=== PATIENT | female | born 1970 | race Hispanic/Latino ===

== ENCOUNTER 2018-07-23 16:07 | Inpatient (IN) | payer BC ==
[2018-07-23 17:48] VITALS: BMI 49.5
[2018-07-23] MEDS ORDERED: guaiFENesin 100 mg/5 ml Syrup UD PO PRN (18:46)
[2018-07-23] MEDS ORDERED: Levalbuterol 0.63 MG/3 ML Inhal Soln UD INH PRN (18:50)
[2018-07-23] MEDS ORDERED: POLYETHYLENE GLYCOL 3350 17 GM/Dose PACKET PO PRN (19:11)
[2018-07-23] MEDS: Oxycodone/Acetaminophen 5/325 mg Tab PO PRN (20:27)
[2018-07-23] MEDS: Amoxicillin-Clav 875-125 mg Tab PO SCH (20:29)
[2018-07-24] MEDS: Oxycodone/Acetaminophen 5/325 mg Tab PO PRN ×3 (05:55→21:53)
[2018-07-24] MEDS: Levothyroxine 75 MCG TAB PO SCH (06:03)
[2018-07-24 07:03] LABS: HEMOGLOBIN 11.2 g/dL (12.0-16.0); MEAN CELL VOLUME 86.7 fl (81.0-99.0); MEAN CORPUSCULAR HGB CONC 32.3 g/dL (33.0-37.0); RBC 4.01 Mil/uL (3.80-5.20); RED CELL DISTRIBUTION WIDTH 15.8 % (11.5-14.5); WHITE BLOOD COUNT 8.6 K/uL (4.8-10.8)
[2018-07-24 07:08] LABS: ALB/GLOB RATIO 1.1 (1.0-2.1); ALBUMIN 3.6 g/dL (3.5-5.0); ALT/SGPT 45 U/L (9-52); AST/SGOT 47 U/L (14-36); BLOOD UREA NITROGEN 7 mg/dl (7-17); GFR NON-AFRICAN AMERICAN > 60
[2018-07-24 07:35] LABS: T3 0.787 nmol/L (1.49-2.60)
[2018-07-24] MEDS: Amoxicillin-Clav 875-125 mg Tab PO SCH ×2 (09:49→21:49)
[2018-07-24] MEDS: Pantoprazole 40 mg EC Tab PO SCH (09:49)
[2018-07-24] MEDS: Potassium Chloride 10 mEq ER Tab PO SCH (09:55)
--- NOTE | 2018-07-24 17:00 | RAD ---
Date of service: 07/24/2018 HISTORY: F/U pneumonia COMPARISON: No prior. TECHNIQUE: 1 view obtained. FINDINGS: LUNGS: Pulmonary venous congestive changes with bilateral lower lobe alveolar-type infiltrates and bilateral effusions right greater than left PLEURA: Small bilateral effusions right greater than left, no pneumothorax apparent. CARDIOVASCULAR: Sternotomy wires again noted. Cardiomegaly. No significant aortic atherosclerotic calcification. OSSEOUS STRUCTURES: No significant abnormalities. VISUALIZED UPPER ABDOMEN: Normal. OTHER FINDINGS: None. IMPRESSION: Mild pulmonary venous congestion with bilateral lower lobe alveolar-type infiltrates and bilateral effusions right greater than left Cardiomegaly.
--- NOTE | 2018-07-24 17:28 | CARD ---
APPROVED REPORT Date of service: 07/24/2018 EKG Measurement Heart [id number] <Conclusion> Atrial fibrillation Left posterior fascicular block Abnormal ECG
[2018-07-25] MEDS: Levothyroxine 75 MCG TAB PO SCH (06:30)
[2018-07-25] MEDS: Amoxicillin-Clav 875-125 mg Tab PO SCH ×2 (09:05→22:19)
[2018-07-25] MEDS: Potassium Chloride 10 mEq ER Tab PO SCH (09:06)
[2018-07-25] MEDS: Pantoprazole 40 mg EC Tab PO SCH (09:07)
[2018-07-25] MEDS: Oxycodone/Acetaminophen 5/325 mg Tab PO PRN ×3 (09:10→22:11)
[2018-07-26] MEDS: Levothyroxine 75 MCG TAB PO SCH (06:16)
--- NOTE | 2018-07-26 08:15 | PN ---
DATE: 07/25/2018 SUBJECTIVE: The patient seen and examined. Interim events noted. Cardiology consult is pending. The patient feels okay. She was able to ambulate about 2 laps around the unit. No chest pain. No shortness of breath. PHYSICAL EXAMINATION: GENERAL: The patient is in no acute distress. VITAL SIGNS: Stable. HEART: S1, S2 normal, regular. LUNGS: Good bilateral air exchange. ABDOMEN: Soft, nontender. EXTREMITIES: The patient has edema. No calf swelling. No tenderness. No acute ischemia. CENTRAL NERVOUS SYSTEM: Essentially unchanged. DIAGNOSTIC DATA: Available diagnostic data reviewed. ASSESSMENT AND PLAN: Overall, the patient remains clinically stable. Chest x-ray shows infiltrate and congestion. Plan as ordered. Roberto Mirza MD
--- NOTE | 2018-07-26 08:40 | HP ---
CHIEF COMPLAINT: The patient was transferred to TCU from [facility] after mitral valve replacement and ablation for atrial fibrillation. HISTORY OF PRESENT ILLNESS: This is a 47-year-old female rheumatic mitral valve disease and atrial fibrillation, morbid obesity, who had mitral valve replacement and ablation for atrial fibrillation done at [facility] last week. Postop course was complicated with pneumonia for which the patient was treated with antibiotic and after stabilization in the hospital, the patient was sent to transitional care unit for completion of treatment. REVIEW OF SYSTEMS: Positive for palpitation. Review of system otherwise is negative for headache, dizziness, syncope, loss of consciousness, chest pain, nausea, vomiting, diarrhea, constipation, any new joint or extremity pain. Review of system of all other organ system is unremarkable. PAST MEDICAL HISTORY: Significant for rheumatic heart disease, mitral valve disease, and atrial fibrillation. PAST SURGICAL HISTORY: Remarkable for recent mitral valve replacement and ablation, also right knee arthroscopy and vaginal cyst surgery. PERSONAL HISTORY: The patient had a remote history of smoking and alcohol, but none used in last about 18 years . No substance abuse. 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 FAMILY HISTORY: Significant for esophageal cancer in father, vulvar cancer in mother and mother with multiple other comorbidities. MEDICATIONS: The patient is on multiple medications, which include Augmentin, Colace, losartan, aspirin, Eliquis, Lasix, potassium, Lipitor, metoprolol, MiraLax, Percocet, Protonix, and Synthroid. ALLERGIES: THE PATIENT IS NOT ALLERGIC TO ANY MEDICATIONS, BUT NAPROSYN GIVES THE PATIENT VERY BAD HEADACHE. PHYSICAL EXAMINATION: GENERAL: A well-built, well-nourished, morbidly obese 47-year-old female in no acute distress. VITAL SIGNS: Temperature 97.9, pulse 89, blood pressure 129/82, saturation 94%. HEENT: Pupils are reacting to light. No JVD. No thyromegaly. No lymphadenopathy. No nystagmus. Normocephalic, atraumatic skull. HEART: S1 and S2, irregularly irregular. No significant murmur, gallop, or rub is heard. ABDOMEN: Soft, nontender. No organomegaly. No fluids. Bowel sounds are plus and normal. EXTREMITIES: The patient with edema, but no calf swelling, no tenderness, no acute ischemia. CENTRAL NERVOUS SYSTEM: Essentially unchanged. There is no sign of any acute gross focal motor or sensory neurological deficits. SKIN: Surgical scars without any complication. DIAGNOSTIC DATA: Available diagnostic data reviewed. WBC 8.6, hemoglobin 11.2, hematocrit 34.8, platelets 354. Sodium 132, potassium 4.4, chloride 89, bicarb 37, BUN , creatinine 0.4. AST 47, alkaline phosphatase is 160. TSH level is pending, although T4 level available and is 9.77. ADMITTING IMPRESSION: Atrial fibrillation status post ablation, but still continues to be in atrial fibrillation, status post mitral valve replacement, hypothyroidism, morbid obesity, rheumatic heart disease. PLAN: As ordered. Case and plan discussed with the patient. Roberto Mirza MD
[2018-07-26] MEDS: Pantoprazole 40 mg EC Tab PO SCH (08:47)
[2018-07-26] MEDS: Oxycodone/Acetaminophen 5/325 mg Tab PO PRN ×3 (08:47→22:14)
[2018-07-26] MEDS: Amoxicillin-Clav 875-125 mg Tab PO SCH ×2 (08:48→20:45)
[2018-07-26] MEDS: Potassium Chloride 10 mEq ER Tab PO SCH (08:48)
--- NOTE | 2018-07-26 09:47 | CP.PCM.CON ---
History of Present Illness - History of Present Illness History of Present Illness: Consultation s/p MVR at [facility] HPI: Florence Proctor is a 47-year-old female with past medical history significant for hypertension hypothyroidism stable lung nodule on serial CAT scans former smoker 25 to 30 pack year history of smoking quit in 2000 chronic back pain secondary to herniated disc L3-L5 chronic knee pain arthritis known severe mitral regurgitation status post percutaneous mitral valvuloplasty that was done in [address] Maria A Arce at [facility] atrial fibrillation diagnosed in December 2017 on Eliquis who was recently evaluated by Dr. Andres from [place] and was transferred over to [facility] where she underwent a mitral valve replacement by Dr. Bahena postoperatively course was complicated by hospital-acquired pneumonia she was subsequently transferred over to TCU in [place] for rehabilitation as she lives in [place] at the time of my evaluation she her pulmonary status has significantly improved she was having some lower extremity edema with mild pulmonary rales chest x-ray was reordered which showed no evidence of pulmonary vascular congestion with mild cardiomegaly she was somewhat concerned about the sternal wound and postoperative care as far as her bra size is concerned she was getting PT and OT with mild improvement in his functional status. She has been resumed on aspirin Eliquis Lipitor,lasix,losartan,metoprolol Review of Systems - Review of Systems Systems not reviewed;Unavailable: Acuity of Condition - Constitutional Constitutional: As Per HPI - EENT Eyes: As Per HPI Ears: As Per HPI Nose/Mouth/Throat: As Per HPI - Breasts Breasts: As Per HPI - Cardiovascular Cardiovascular: As Per HPI - Respiratory Respiratory: As Per HPI - Gastrointestinal Gastrointestinal: As Per HPI - Genitourinary Genitourinary: As Per HPI - Reproductive: Female Reproductive:Female: As Per HPI - Menstruation Menstruation: As Per HPI - Musculoskeletal Musculoskeletal: As Per HPI - Integumentary Integumentary: As Per HPI - Neurological Neurological: As Per HPI - Psychiatric Psychiatric: As Per HPI - Endocrine Endocrine: As Per HPI - Hematologic/Lymphatic Hematologic: As Per HPI Past Patient History - Past Social History Smoking Status: Former Smoker - CARDIAC Hx Hypertension: Yes Hx Mitral Valve Prolapse: Yes - PULMONARY Hx Pneumonia: Yes - HEMATOLOGICAL/ONCOLOGICAL Hx AIDS: No Hx Human Immunodeficiency Virus (HIV): No - MUSCULOSKELETAL/RHEUMATOLOGICAL Hx Arthritis: Yes Hx Back Pain: Yes Hx Falls: No Hx Herniated Disk: Yes - PSYCHIATRIC Hx Substance Use: No Meds Allergies/Adverse Reactions: Allergies Allergy/AdvReac Type Severity Reaction Status Date / Time naproxen Allergy RASH Verified 07/23/18 17:48 - Medications Medications: Current Medications Acetaminophen (Tylenol 325mg Tab) 650 mg PO Q6 PRN PRN Reason: Pain, Mild (1-3) Amoxicillin/Clavulanate Potassium (Augmentin 875 Mg-125 Mg Tab) 1 tab PO Q12 [facility]; Protocol Last Admin: 07/26/18 08:48 Dose: 1 tab Apixaban (Eliquis) 5 mg PO Q12 [facility]; Protocol Last Admin: 07/26/18 08:48 Dose: 5 mg Aspirin (Ecotrin) 81 mg PO DAILY [facility] Last Admin: 07/26/18 08:47 Dose: 81 mg Atorvastatin Calcium (Lipitor) 10 mg PO HS [facility] Last Admin: 07/25/18 22:20 Dose: 10 mg Docusate Sodium (Colace) 100 mg PO BID [facility] Last Admin: 07/26/18 08:47 Dose: 100 mg Furosemide (Lasix) 40 mg PO BID@0600,1400 [facility] Last Admin: 07/26/18 06:12 Dose: 40 mg Guaifenesin (Robitussin) 100 mg PO Q6 PRN PRN Reason: Cough Levalbuterol HCl (Xopenex) 0.63 mg INH RQ6 PRN PRN Reason: Shortness of Breath Levothyroxine Sodium (Synthroid) 225 mcg PO DAILY@0630 [facility] Last Admin: 07/26/18 06:16 Dose: 225 mcg Losartan Potassium (Cozaar) 25 mg PO DAILY [facility] Last Admin: 07/26/18 08:50 Dose: 25 mg Metoprolol Tartrate (Lopressor) 75 mg PO BID [facility] Last Admin: 07/26/18 08:48 Dose: 75 mg Oxycodone/Acetaminophen (Percocet 5/325 Mg Tab) 1 tab PO Q6 PRN PRN Reason: Pain, moderate (4-7) Stop: 07/26/18 18:53 Last Admin: 07/26/18 08:47 Dose: 1 tab Pantoprazole Sodium (Protonix Ec Tab) 40 mg PO DAILY [facility] Last Admin: 07/26/18 08:47 Dose: 40 mg Polyethylene Glycol (Miralax) 17 gm PO DAILY PRN PRN Reason: Constipation Potassium Chloride (Klor-Con 10) 10 meq PO DAILY [facility] Last Admin: 07/26/18 08:48 Dose: 10 meq Physical Exam - Constitutional Appears: Well - Head Exam Head Exam: ATRAUMATIC, NORMAL INSPECTION, NORMOCEPHALIC - Eye Exam Eye Exam: EOMI, Normal appearance, PERRL Pupil Exam: NORMAL ACCOMODATION, PERRL - ENT Exam ENT Exam: Mucous Membranes Moist, Normal Exam - Neck Exam Neck exam: Positive for: Normal Inspection - Respiratory Exam Respiratory Exam: Clear to Auscultation Bilateral, NORMAL BREATHING PATTERN - Cardiovascular Exam Cardiovascular Exam: REGULAR RHYTHM, +S1, +S2, Systolic Murmur - GI/Abdominal Exam GI & Abdominal Exam: Normal Bowel Sounds, Soft. absent: Tenderness - Extremities Exam Extremities exam: Positive for: normal inspection - Back Exam Back exam: NORMAL INSPECTION - Neurological Exam Neurological exam: Alert, CN II-XII Intact, Normal Gait, Oriented x3, Reflexes Normal - Psychiatric Exam Psychiatric exam: Normal Affect, Normal Mood - Skin Skin Exam: Dry, Intact, Normal Color, Warm Results - Vital Signs Recent Vital Signs: Last Vital Signs Temp 97.7 F 07/26/18 06:33 Pulse 68 07/26/18 08:48 Resp 20 07/26/18 06:33 BP 125/60 07/26/18 08:50 Pulse Ox 98 07/26/18 06:33 - Labs Result Diagrams: 07/24/18 05:20 07/24/18 05:20 Assessment & Plan (1) S/P MVR (mitral valve repair) Assessment and Plan: stable on exam cont current meds repeat echo cont lasix repeat cxr shows no congestion BNP 1850 Status: Acute (2) Atrial fibrillation with normal ventricular rate Assessment and Plan: cont eliquis and bb Status: Acute (3) Hypertension Assessment and Plan: cont losartan Status: Acute (4) Hypothyroidism Status: Acute (5) Morbid obesity Status: Acute
--- NOTE | 2018-07-26 10:16 | PN ---
DATE: 07/26/2018 SUBJECTIVE: The patient is seen and examined. Interim events noted. Cardiology consult is pending. The patient feels better. No chest pain. No shortness of breath. She was able to walk 2 laps around the unit. PHYSICAL EXAMINATION: GENERAL: The patient is in no acute distress. VITAL SIGNS: Stable. HEART: S1, S2 normal, regular. LUNGS: Good bilateral air exchange. ABDOMEN: Soft, nontender. EXTREMITIES: edema. No calf swelling. No tenderness. No acute ischemia. CENTRAL NERVOUS SYSTEM: Essentially unchanged. DIAGNOSTIC DATA: Available diagnostic data reviewed. ASSESSMENT AND PLAN: Overall, the patient's medical condition is stable. Plan as ordered. Roberto Mirza MD
--- NOTE | 2018-07-26 14:21 | RAD ---
Date of service: 07/26/2018 HISTORY: COMPARISON: Frontal chest radiograph 07/24/2018. TECHNIQUE: 1 view obtained. FINDINGS: LUNGS: No active pulmonary disease. PLEURA: No significant pleural effusion identified, no pneumothorax apparent. CARDIOVASCULAR: No aortic atherosclerotic calcification present. Cardiomegaly appears stable. No definite pulmonary vascular congestion appreciable in the interval. Sternotomy wires and prosthetic valvular hardware reiterated. OSSEOUS STRUCTURES: No significant abnormalities. VISUALIZED UPPER ABDOMEN: Normal. OTHER FINDINGS: None. IMPRESSION: Stable cardiomegaly. No definite pulmonary vascular congestion, pleural effusion or infiltrate bilaterally.
[2018-07-27] MEDS: Levothyroxine 75 MCG TAB PO SCH (05:55)
[2018-07-27] MEDS: Oxycodone/Acetaminophen 5/325 mg Tab PO PRN ×2 (08:48→21:32)
[2018-07-27] MEDS: Amoxicillin-Clav 875-125 mg Tab PO SCH ×2 (08:50→21:28)
[2018-07-27] MEDS: Potassium Chloride 10 mEq ER Tab PO SCH (08:51)
[2018-07-27] MEDS: Pantoprazole 40 mg EC Tab PO SCH (08:51)
--- NOTE | 2018-07-27 10:47 | CP.PCM.PN ---
<Chad Lopez - Last Filed: 07/27/18 10:45> Subjective - Date & Time of Evaluation Date of Evaluation: 07/27/18 Time of Evaluation: 07:30 - Subjective Subjective: 47 y/o F was seen and examined by bedside with Dr Mirza. Pt reports feeling OK, still has some chest pain and back pain from recent surgery. Pt afebrile and tolerating PO. Pt is doing physical therapy. No acute events overnight. Objective - Vital Signs/Intake and Output Vital Signs (last 24 hours): Temp Pulse Resp BP Pulse Ox 97.7 F 81 20 125/82 98 07/27/18 09:40 07/27/18 09:40 07/27/18 09:40 07/27/18 09:40 07/27/18 09:40 - Medications Medications: Current Medications Acetaminophen (Tylenol 325mg Tab) 650 mg PO Q6 PRN PRN Reason: Pain, Mild (1-3) Amoxicillin/Clavulanate Potassium (Augmentin 875 Mg-125 Mg Tab) 1 tab PO Q12 [facility]; Protocol Last Admin: 07/27/18 08:50 Dose: 1 tab Apixaban (Eliquis) 5 mg PO Q12 [facility]; Protocol Last Admin: 07/27/18 08:49 Dose: 5 mg Aspirin (Ecotrin) 81 mg PO DAILY [facility] Last Admin: 07/27/18 08:50 Dose: 81 mg Atorvastatin Calcium (Lipitor) 10 mg PO HS [facility] Last Admin: 07/26/18 22:16 Dose: 10 mg Docusate Sodium (Colace) 100 mg PO BID [facility] Last Admin: 07/27/18 08:50 Dose: Not Given Furosemide (Lasix) 40 mg PO BID@0600,1400 [facility] Last Admin: 07/27/18 05:50 Dose: Not Given Guaifenesin (Robitussin) 100 mg PO Q6 PRN PRN Reason: Cough Levalbuterol HCl (Xopenex) 0.63 mg INH RQ6 PRN PRN Reason: Shortness of Breath Levothyroxine Sodium (Synthroid) 225 mcg PO DAILY@0630 [facility] Last Admin: 07/27/18 05:55 Dose: 225 mcg Losartan Potassium (Cozaar) 25 mg PO DAILY [facility] Last Admin: 07/27/18 08:50 Dose: 25 mg Metoprolol Tartrate (Lopressor) 75 mg PO BID [facility] Last Admin: 07/27/18 08:49 Dose: 75 mg Oxycodone/Acetaminophen (Percocet 5/325 Mg Tab) 1 tab PO Q6 PRN PRN Reason: for pain level 4-7 Stop: 07/29/18 20:48 Last Admin: 07/27/18 08:48 Dose: 1 tab Pantoprazole Sodium (Protonix Ec Tab) 40 mg PO DAILY [facility] Last Admin: 07/27/18 08:51 Dose: 40 mg Polyethylene Glycol (Miralax) 17 gm PO DAILY PRN PRN Reason: Constipation Potassium Chloride (Klor-Con 10) 10 meq PO DAILY [facility] Last Admin: 07/27/18 08:51 Dose: 10 meq - Labs Labs: 07/24/18 05:20 07/24/18 05:20 - Constitutional Appears: No Acute Distress - Head Exam Head Exam: ATRAUMATIC, NORMAL INSPECTION - Eye Exam Eye Exam: EOMI - ENT Exam ENT Exam: Mucous Membranes Moist - Neck Exam Neck Exam: Full ROM. absent: Meningismus - Respiratory Exam Respiratory Exam: NORMAL BREATHING PATTERN. absent: Rales, Rhonchi, Wheezes - Cardiovascular Exam Cardiovascular Exam: Irregular Rhythm, +S1, +S2 - GI/Abdominal Exam GI & Abdominal Exam: Soft, Normal Bowel Sounds. absent: Guarding, Rigid, Tenderness - Extremities Exam Extremities Exam: Full ROM, Pedal Edema. absent: Calf Tenderness, Tenderness - Back Exam Back Exam: absent: CVA tenderness (L), CVA tenderness (R) - Neurological Exam Neurological Exam: Alert, Awake, Oriented x3 Assessment and Plan (1) Atrial fibrillation with normal ventricular rate Status: Acute (2) Morbid obesity Status: Acute (3) Hypothyroidism Status: Acute (4) Hypertension Status: Acute (5) Pneumonia, community acquired Status: Acute (6) S/P MVR (mitral valve repair) Status: Acute - Assessment and Plan (Free Text) Assessment: 47 y/o F with a PMHx of hypothyrodisim, HTN, morbid obesity, rheumatic mitral valve disease and AFib, S/P Mitral cat tender replacement and cardiac ablation >1 week ago and complicated by pneumonia, was admitted for rehabilitation and antibiotic therapy. PLAN: --Afebrile, vitals stable. --Recovering well from surgery. --Continue with PO antibiotics. --Continue with physical therapy --Cardiology on board, Dr Villalobos. --Continue home medications as ordered. --F/U Chest X-ray Case discussed with Dr Hermes Lopez PGY-2 <Roberto Mriza - Last Filed: 07/29/18 08:44> Objective - Vital Signs/Intake and Output Vital Signs (last 24 hours): Temp Pulse Resp BP Pulse Ox 98.0 F 79 20 115/78 95 07/29/18 08:16 07/29/18 08:16 07/29/18 08:16 07/29/18 08:16 07/29/18 08:16 - Medications Medications: Current Medications Acetaminophen (Tylenol 325mg Tab) 650 mg PO Q6 PRN PRN Reason: Pain, Mild (1-3) Amoxicillin/Clavulanate Potassium (Augmentin 875 Mg-125 Mg Tab) 1 tab PO Q12 [facility]; Protocol Last Admin: 07/28/18 21:16 Dose: 1 tab Apixaban (Eliquis) 5 mg PO Q12 [facility]; Protocol Last Admin: 07/28/18 21:15 Dose: 5 mg Aspirin (Ecotrin) 81 mg PO DAILY [facility] Last Admin: 07/28/18 09:42 Dose: 81 mg Atorvastatin Calcium (Lipitor) 10 mg PO HS [facility] Last Admin: 07/28/18 21:15 Dose: 10 mg Docusate Sodium (Colace) 100 mg PO BID [facility] Last Admin: 07/28/18 16:34 Dose: Not Given Furosemide (Lasix) 40 mg PO BID@0600,1400 [facility] Last Admin: 07/29/18 06:25 Dose: Not Given Guaifenesin (Robitussin) 100 mg PO Q6 PRN PRN Reason: Cough Levalbuterol HCl (Xopenex) 0.63 mg INH RQ6 PRN PRN Reason: Shortness of Breath Levothyroxine Sodium (Synthroid) 225 mcg PO DAILY@0630 [facility] Last Admin: 07/29/18 06:25 Dose: 225 mcg Losartan Potassium (Cozaar) 25 mg PO DAILY [facility] Last Admin: 07/28/18 09:42 Dose: 25 mg Metoprolol Tartrate (Lopressor) 75 mg PO BID [facility] Last Admin: 07/28/18 16:35 Dose: 75 mg Oxycodone/Acetaminophen (Percocet 5/325 Mg Tab) 1 tab PO Q6 PRN PRN Reason: for pain level 4-7 Stop: 07/29/18 20:48 Last Admin: 07/29/18 06:32 Dose: 1 tab Pantoprazole Sodium (Protonix Ec Tab) 40 mg PO DAILY [facility] Last Admin: 07/28/18 09:41 Dose: 40 mg Polyethylene Glycol (Miralax) 17 gm PO DAILY PRN PRN Reason: Constipation Potassium Chloride (Klor-Con 10) 10 meq PO DAILY [facility] Last Admin: 07/28/18 09:42 Dose: 10 meq - Labs Labs: 07/29/18 07:00 07/29/18 07:00 Assessment and Plan - Assessment and Plan (Free Text) Assessment: Patient was personally seen and examined by me in rounds with residents. Available labs and diagnostic data reviewed. Case, Patient's condition and management plan discussed with residents in rounds. Agree with resident's progress note. Plan: As ordered.
--- NOTE | 2018-07-27 15:39 | CP.PCM.PN ---
Subjective - Date & Time of Evaluation Date of Evaluation: 07/27/18 Time of Evaluation: 15:38 - Subjective Subjective: c/o chest wall discomfort at surgical site did ot/pt today overall improving Objective - Vital Signs/Intake and Output Vital Signs (last 24 hours): Temp Pulse Resp BP Pulse Ox 97.8 F 64 20 126/58 L 99 07/27/18 10:00 07/27/18 10:00 07/27/18 10:00 07/27/18 13:18 07/27/18 10:00 - Medications Medications: Current Medications Acetaminophen (Tylenol 325mg Tab) 650 mg PO Q6 PRN PRN Reason: Pain, Mild (1-3) Amoxicillin/Clavulanate Potassium (Augmentin 875 Mg-125 Mg Tab) 1 tab PO Q12 [facility]; Protocol Last Admin: 07/27/18 08:50 Dose: 1 tab Apixaban (Eliquis) 5 mg PO Q12 [facility]; Protocol Last Admin: 07/27/18 08:49 Dose: 5 mg Aspirin (Ecotrin) 81 mg PO DAILY [facility] Last Admin: 07/27/18 08:50 Dose: 81 mg Atorvastatin Calcium (Lipitor) 10 mg PO HS [facility] Last Admin: 07/26/18 22:16 Dose: 10 mg Docusate Sodium (Colace) 100 mg PO BID [facility] Last Admin: 07/27/18 08:50 Dose: Not Given Furosemide (Lasix) 40 mg PO BID@0600,1400 [facility] Last Admin: 07/27/18 13:18 Dose: 40 mg Guaifenesin (Robitussin) 100 mg PO Q6 PRN PRN Reason: Cough Levalbuterol HCl (Xopenex) 0.63 mg INH RQ6 PRN PRN Reason: Shortness of Breath Levothyroxine Sodium (Synthroid) 225 mcg PO DAILY@0630 [facility] Last Admin: 07/27/18 05:55 Dose: 225 mcg Losartan Potassium (Cozaar) 25 mg PO DAILY [facility] Last Admin: 07/27/18 08:50 Dose: 25 mg Metoprolol Tartrate (Lopressor) 75 mg PO BID [facility] Last Admin: 07/27/18 08:49 Dose: 75 mg Oxycodone/Acetaminophen (Percocet 5/325 Mg Tab) 1 tab PO Q6 PRN PRN Reason: for pain level 4-7 Stop: 07/29/18 20:48 Last Admin: 07/27/18 08:48 Dose: 1 tab Pantoprazole Sodium (Protonix Ec Tab) 40 mg PO DAILY [facility] Last Admin: 07/27/18 08:51 Dose: 40 mg Polyethylene Glycol (Miralax) 17 gm PO DAILY PRN PRN Reason: Constipation Potassium Chloride (Klor-Con 10) 10 meq PO DAILY [facility] Last Admin: 07/27/18 08:51 Dose: 10 meq - Labs Labs: 07/24/18 05:20 07/24/18 05:20 - Constitutional Appears: Well - Head Exam Head Exam: ATRAUMATIC, NORMAL INSPECTION, NORMOCEPHALIC - Eye Exam Eye Exam: EOMI, Normal appearance, PERRL Pupil Exam: NORMAL ACCOMODATION, PERRL - ENT Exam ENT Exam: Mucous Membranes Moist, Normal Exam - Neck Exam Neck Exam: Full ROM, Normal Inspection. absent: Lymphadenopathy - Respiratory Exam Respiratory Exam: Clear to Ausculation Bilateral, NORMAL BREATHING PATTERN - Cardiovascular Exam Cardiovascular Exam: REGULAR RHYTHM, +S1, +S2. absent: Murmur - GI/Abdominal Exam GI & Abdominal Exam: Soft, Normal Bowel Sounds. absent: Tenderness - Extremities Exam Extremities Exam: Full ROM, Normal Capillary Refill, Normal Inspection. absent: Joint Swelling, Pedal Edema - Back Exam Back Exam: NORMAL INSPECTION - Neurological Exam Neurological Exam: Alert, Awake, CN II-XII Intact, Normal Gait, Oriented x3 - Psychiatric Exam Psychiatric exam: Normal Affect, Normal Mood - Skin Skin Exam: Dry, Intact, Normal Color, Warm Assessment and Plan (1) S/P MVR (mitral valve repair) Status: Acute (2) Atrial fibrillation with normal ventricular rate Status: Acute (3) Hypertension Status: Acute (4) Hypothyroidism Status: Acute (5) Morbid obesity Status: Acute
[2018-07-28] MEDS: Levothyroxine 75 MCG TAB PO SCH (05:55)
[2018-07-28] MEDS: Amoxicillin-Clav 875-125 mg Tab PO SCH ×2 (09:40→21:16)
[2018-07-28] MEDS: Pantoprazole 40 mg EC Tab PO SCH (09:41)
[2018-07-28] MEDS: Potassium Chloride 10 mEq ER Tab PO SCH (09:42)
--- NOTE | 2018-07-28 10:40 | CP.PCM.PN ---
<Zeyad Bahena - Last Filed: 07/28/18 10:38> Subjective - Date & Time of Evaluation Date of Evaluation: 07/28/18 Time of Evaluation: 06:30 - Subjective Subjective: Patient seen and examined this morning with Dr. Mirza. Patient reports no acute event overnight, reports muscle cramps/tired due to PT yesterday, denies any chest pain, fever, LEs pain or SOB. Objective - Vital Signs/Intake and Output Vital Signs (last 24 hours): Temp Pulse Resp BP Pulse Ox 98.0 F 79 20 129/74 100 07/28/18 08:08 07/28/18 09:42 07/28/18 08:08 07/28/18 09:42 07/28/18 08:08 - Medications Medications: Current Medications Acetaminophen (Tylenol 325mg Tab) 650 mg PO Q6 PRN PRN Reason: Pain, Mild (1-3) Amoxicillin/Clavulanate Potassium (Augmentin 875 Mg-125 Mg Tab) 1 tab PO Q12 [facility]; Protocol Last Admin: 07/28/18 09:40 Dose: 1 tab Apixaban (Eliquis) 5 mg PO Q12 [facility]; Protocol Last Admin: 07/28/18 09:40 Dose: 5 mg Aspirin (Ecotrin) 81 mg PO DAILY [facility] Last Admin: 07/28/18 09:42 Dose: 81 mg Atorvastatin Calcium (Lipitor) 10 mg PO HS [facility] Last Admin: 07/27/18 21:29 Dose: 10 mg Docusate Sodium (Colace) 100 mg PO BID [facility] Last Admin: 07/28/18 09:40 Dose: Not Given Furosemide (Lasix) 40 mg PO BID@0600,1400 [facility] Last Admin: 07/28/18 05:57 Dose: 40 mg Guaifenesin (Robitussin) 100 mg PO Q6 PRN PRN Reason: Cough Levalbuterol HCl (Xopenex) 0.63 mg INH RQ6 PRN PRN Reason: Shortness of Breath Levothyroxine Sodium (Synthroid) 225 mcg PO DAILY@0630 [facility] Last Admin: 07/28/18 05:55 Dose: 225 mcg Losartan Potassium (Cozaar) 25 mg PO DAILY [facility] Last Admin: 07/28/18 09:42 Dose: 25 mg Metoprolol Tartrate (Lopressor) 75 mg PO BID [facility] Last Admin: 07/28/18 09:41 Dose: 75 mg Oxycodone/Acetaminophen (Percocet 5/325 Mg Tab) 1 tab PO Q6 PRN PRN Reason: for pain level 4-7 Stop: 07/29/18 20:48 Last Admin: 07/27/18 21:32 Dose: 1 tab Pantoprazole Sodium (Protonix Ec Tab) 40 mg PO DAILY [facility] Last Admin: 07/28/18 09:41 Dose: 40 mg Polyethylene Glycol (Miralax) 17 gm PO DAILY PRN PRN Reason: Constipation Potassium Chloride (Klor-Con 10) 10 meq PO DAILY [facility] Last Admin: 07/28/18 09:42 Dose: 10 meq - Labs Labs: 07/24/18 05:20 07/24/18 05:20 - Constitutional Appears: No Acute Distress - Head Exam Head Exam: NORMAL INSPECTION - Eye Exam Eye Exam: EOMI, Normal appearance, PERRL Pupil Exam: NORMAL ACCOMODATION - ENT Exam ENT Exam: Mucous Membranes Moist - Respiratory Exam Respiratory Exam: Clear to Ausculation Bilateral, NORMAL BREATHING PATTERN - Cardiovascular Exam Cardiovascular Exam: REGULAR RHYTHM Additional comments: s/p MV replacement, surgical scar examined, nontender, no erythema or discharge noted - GI/Abdominal Exam GI & Abdominal Exam: Soft, Normal Bowel Sounds. absent: Tenderness - Extremities Exam Extremities Exam: Pedal Edema, Tenderness - Neurological Exam Neurological Exam: Alert, Awake, CN II-XII Intact, Oriented x3 - Psychiatric Exam Psychiatric exam: Normal Affect - Skin Skin Exam: Normal Color Assessment and Plan - Assessment and Plan (Free Text) Assessment: A/P: 47 y/o F with a PMHx of hypothyrodisim, HTN, morbid obesity, rheumatic mitral valve disease and AFib, S/P Mitral statistical developer replacement and cardiac ablation >1 week ago and complicated by pneumonia, was admitted for rehabilitation and antibiotic therapy. --Afebrile, vitals stable --Cardiology on board, Dr Villalobos --Recovering well from surgery, s/p open MV replacement, c/w ASA/Eliquis/Lipitor/Lasix/Losartan/Metoprolol --Lower extremities swelling and pain: C/w Lasix --C/w Levothyroxine --Continue with PO antibiotics/ Augmentin --Continue with physical therapy --Continue plan as ordered Case discussed with Dr Mirza <Roberto Mirza - Last Filed: 07/29/18 08:41> Objective - Vital Signs/Intake and Output Vital Signs (last 24 hours): Temp Pulse Resp BP Pulse Ox 98.0 F 79 20 115/78 95 07/29/18 08:16 07/29/18 08:16 07/29/18 08:16 07/29/18 08:16 07/29/18 08:16 - Medications Medications: Current Medications Acetaminophen (Tylenol 325mg Tab) 650 mg PO Q6 PRN PRN Reason: Pain, Mild (1-3) Amoxicillin/Clavulanate Potassium (Augmentin 875 Mg-125 Mg Tab) 1 tab PO Q12 [facility]; Protocol Last Admin: 07/28/18 21:16 Dose: 1 tab Apixaban (Eliquis) 5 mg PO Q12 [facility]; Protocol Last Admin: 07/28/18 21:15 Dose: 5 mg Aspirin (Ecotrin) 81 mg PO DAILY [facility] Last Admin: 07/28/18 09:42 Dose: 81 mg Atorvastatin Calcium (Lipitor) 10 mg PO HS [facility] Last Admin: 07/28/18 21:15 Dose: 10 mg Docusate Sodium (Colace) 100 mg PO BID [facility] Last Admin: 07/28/18 16:34 Dose: Not Given Furosemide (Lasix) 40 mg PO BID@0600,1400 [facility] Last Admin: 07/29/18 06:25 Dose: Not Given Guaifenesin (Robitussin) 100 mg PO Q6 PRN PRN Reason: Cough Levalbuterol HCl (Xopenex) 0.63 mg INH RQ6 PRN PRN Reason: Shortness of Breath Levothyroxine Sodium (Synthroid) 225 mcg PO DAILY@0630 [facility] Last Admin: 07/29/18 06:25 Dose: 225 mcg Losartan Potassium (Cozaar) 25 mg PO DAILY [facility] Last Admin: 07/28/18 09:42 Dose: 25 mg Metoprolol Tartrate (Lopressor) 75 mg PO BID [facility] Last Admin: 07/28/18 16:35 Dose: 75 mg Oxycodone/Acetaminophen (Percocet 5/325 Mg Tab) 1 tab PO Q6 PRN PRN Reason: for pain level 4-7 Stop: 07/29/18 20:48 Last Admin: 07/29/18 06:32 Dose: 1 tab Pantoprazole Sodium (Protonix Ec Tab) 40 mg PO DAILY [facility] Last Admin: 07/28/18 09:41 Dose: 40 mg Polyethylene Glycol (Miralax) 17 gm PO DAILY PRN PRN Reason: Constipation Potassium Chloride (Klor-Con 10) 10 meq PO DAILY [facility] Last Admin: 07/28/18 09:42 Dose: 10 meq - Labs Labs: 07/29/18 07:00 07/29/18 07:00 Assessment and Plan - Assessment and Plan (Free Text) Assessment: Patient was personally seen and examined by me in rounds with residents. Available labs and diagnostic data reviewed. Case, Patient's condition and management plan discussed with residents in rounds. Agree with resident's progress note. Plan: As ordered.
--- NOTE | 2018-07-28 14:39 | CP.PCM.PN ---
Subjective - Date & Time of Evaluation Date of Evaluation: 07/28/18 Time of Evaluation: 14:38 - Subjective Subjective: stable and improving Objective - Vital Signs/Intake and Output Vital Signs (last 24 hours): Temp Pulse Resp BP Pulse Ox 98.0 F 79 20 129/74 100 07/28/18 08:08 07/28/18 09:42 07/28/18 08:08 07/28/18 09:42 07/28/18 08:08 - Medications Medications: Current Medications Acetaminophen (Tylenol 325mg Tab) 650 mg PO Q6 PRN PRN Reason: Pain, Mild (1-3) Amoxicillin/Clavulanate Potassium (Augmentin 875 Mg-125 Mg Tab) 1 tab PO Q12 [facility]; Protocol Last Admin: 07/28/18 09:40 Dose: 1 tab Apixaban (Eliquis) 5 mg PO Q12 [facility]; Protocol Last Admin: 07/28/18 09:40 Dose: 5 mg Aspirin (Ecotrin) 81 mg PO DAILY [facility] Last Admin: 07/28/18 09:42 Dose: 81 mg Atorvastatin Calcium (Lipitor) 10 mg PO HS [facility] Last Admin: 07/27/18 21:29 Dose: 10 mg Docusate Sodium (Colace) 100 mg PO BID [facility] Last Admin: 07/28/18 09:40 Dose: Not Given Furosemide (Lasix) 40 mg PO BID@0600,1400 [facility] Last Admin: 07/28/18 05:57 Dose: 40 mg Guaifenesin (Robitussin) 100 mg PO Q6 PRN PRN Reason: Cough Levalbuterol HCl (Xopenex) 0.63 mg INH RQ6 PRN PRN Reason: Shortness of Breath Levothyroxine Sodium (Synthroid) 225 mcg PO DAILY@0630 [facility] Last Admin: 07/28/18 05:55 Dose: 225 mcg Losartan Potassium (Cozaar) 25 mg PO DAILY [facility] Last Admin: 07/28/18 09:42 Dose: 25 mg Metoprolol Tartrate (Lopressor) 75 mg PO BID [facility] Last Admin: 07/28/18 09:41 Dose: 75 mg Oxycodone/Acetaminophen (Percocet 5/325 Mg Tab) 1 tab PO Q6 PRN PRN Reason: for pain level 4-7 Stop: 07/29/18 20:48 Last Admin: 07/27/18 21:32 Dose: 1 tab Pantoprazole Sodium (Protonix Ec Tab) 40 mg PO DAILY [facility] Last Admin: 07/28/18 09:41 Dose: 40 mg Polyethylene Glycol (Miralax) 17 gm PO DAILY PRN PRN Reason: Constipation Potassium Chloride (Klor-Con 10) 10 meq PO DAILY [facility] Last Admin: 07/28/18 09:42 Dose: 10 meq - Labs Labs: 07/24/18 05:20 07/24/18 05:20 - Constitutional Appears: Well - Head Exam Head Exam: ATRAUMATIC, NORMAL INSPECTION, NORMOCEPHALIC - Eye Exam Eye Exam: EOMI, Normal appearance, PERRL Pupil Exam: NORMAL ACCOMODATION, PERRL - ENT Exam ENT Exam: Mucous Membranes Moist, Normal Exam - Neck Exam Neck Exam: Full ROM, Normal Inspection. absent: Lymphadenopathy - Respiratory Exam Respiratory Exam: Clear to Ausculation Bilateral, NORMAL BREATHING PATTERN - Cardiovascular Exam Cardiovascular Exam: REGULAR RHYTHM, +S1, +S2. absent: Murmur - GI/Abdominal Exam GI & Abdominal Exam: Soft, Normal Bowel Sounds. absent: Tenderness - Extremities Exam Extremities Exam: Full ROM, Normal Capillary Refill, Normal Inspection. absent: Joint Swelling, Pedal Edema - Back Exam Back Exam: NORMAL INSPECTION - Neurological Exam Neurological Exam: Alert, Awake, CN II-XII Intact, Normal Gait, Oriented x3 - Psychiatric Exam Psychiatric exam: Normal Affect, Normal Mood - Skin Skin Exam: Dry, Intact, Normal Color, Warm Assessment and Plan (1) S/P MVR (mitral valve repair) Status: Acute (2) Atrial fibrillation with normal ventricular rate Status: Acute (3) Hypertension Status: Acute (4) Hypothyroidism Status: Acute (5) Morbid obesity Status: Acute
[2018-07-28] MEDS: Oxycodone/Acetaminophen 5/325 mg Tab PO PRN (15:04)
[2018-07-29] MEDS: Levothyroxine 75 MCG TAB PO SCH (06:25)
[2018-07-29] MEDS: Oxycodone/Acetaminophen 5/325 mg Tab PO PRN ×2 (06:32→22:02)
[2018-07-29 07:29] LABS: BASO # 0.1 K/uL (0.0-0.2); BASO % 0.9 % (0.0-2.0); EOS # 0.1 K/uL (0.0-0.7); EOS % 0.7 % (0.0-4.0); HEMOGLOBIN 10.9 g/dL (12.0-16.0); LYMPH # 1.3 K/uL (1.0-4.3); LYMPH % 12.5 % (20.0-40.0); MEAN CELL VOLUME 86.1 fl (81.0-99.0); MEAN CORPUSCULAR HEMOGLOBIN 28.2 pg (27.0-31.0); MEAN CORPUSCULAR HGB CONC 32.7 g/dL (33.0-37.0); MEAN PLATELET VOLUME 8.3 fl (7.2-11.7); MONO # 0.6 K/uL (0.0-0.8); MONO % 5.9 % (0.0-10.0); NEUT # 8.4 K/uL (1.8-7.0); RBC 3.88 Mil/uL (3.80-5.20); RED CELL DISTRIBUTION WIDTH 16.6 % (11.5-14.5); WHITE BLOOD COUNT 10.5 K/uL (4.8-10.8)
--- NOTE | 2018-07-29 07:48 | CP.PCM.PN ---
<Zeyad Bahena - Last Filed: 07/29/18 07:52> Subjective - Date & Time of Evaluation Date of Evaluation: 07/29/18 Time of Evaluation: 07:45 - Subjective Subjective: Patient seen and examined this morning with Dr. Mirza. No acute event recorded overnight, patient is still c/o left arm weakness/numbness (CT head Pending), reports good progress with PT/Exercise. Tolerating po, denies any chest pain, SOB or abdominal pain. Objective - Vital Signs/Intake and Output Vital Signs (last 24 hours): Temp Pulse Resp BP Pulse Ox 98.2 F 74 20 106/72 98 07/28/18 19:22 07/28/18 19:22 07/28/18 19:22 07/28/18 19:22 07/28/18 19:22 - Medications Medications: Current Medications Acetaminophen (Tylenol 325mg Tab) 650 mg PO Q6 PRN PRN Reason: Pain, Mild (1-3) Amoxicillin/Clavulanate Potassium (Augmentin 875 Mg-125 Mg Tab) 1 tab PO Q12 [facility]; Protocol Last Admin: 07/28/18 21:16 Dose: 1 tab Apixaban (Eliquis) 5 mg PO Q12 [facility]; Protocol Last Admin: 07/28/18 21:15 Dose: 5 mg Aspirin (Ecotrin) 81 mg PO DAILY [facility] Last Admin: 07/28/18 09:42 Dose: 81 mg Atorvastatin Calcium (Lipitor) 10 mg PO HS [facility] Last Admin: 07/28/18 21:15 Dose: 10 mg Docusate Sodium (Colace) 100 mg PO BID [facility] Last Admin: 07/28/18 16:34 Dose: Not Given Furosemide (Lasix) 40 mg PO BID@0600,1400 [facility] Last Admin: 07/29/18 06:25 Dose: Not Given Guaifenesin (Robitussin) 100 mg PO Q6 PRN PRN Reason: Cough Levalbuterol HCl (Xopenex) 0.63 mg INH RQ6 PRN PRN Reason: Shortness of Breath Levothyroxine Sodium (Synthroid) 225 mcg PO DAILY@0630 [facility] Last Admin: 07/29/18 06:25 Dose: 225 mcg Losartan Potassium (Cozaar) 25 mg PO DAILY [facility] Last Admin: 07/28/18 09:42 Dose: 25 mg Metoprolol Tartrate (Lopressor) 75 mg PO BID [facility] Last Admin: 07/28/18 16:35 Dose: 75 mg Oxycodone/Acetaminophen (Percocet 5/325 Mg Tab) 1 tab PO Q6 PRN PRN Reason: for pain level 4-7 Stop: 07/29/18 20:48 Last Admin: 07/29/18 06:32 Dose: 1 tab Pantoprazole Sodium (Protonix Ec Tab) 40 mg PO DAILY [facility] Last Admin: 07/28/18 09:41 Dose: 40 mg Polyethylene Glycol (Miralax) 17 gm PO DAILY PRN PRN Reason: Constipation Potassium Chloride (Klor-Con 10) 10 meq PO DAILY [facility] Last Admin: 07/28/18 09:42 Dose: 10 meq - Labs Labs: 07/29/18 07:00 07/24/18 05:20 - Constitutional Appears: No Acute Distress - Head Exam Head Exam: NORMAL INSPECTION - Eye Exam Eye Exam: EOMI, Normal appearance, PERRL Pupil Exam: NORMAL ACCOMODATION - ENT Exam ENT Exam: Mucous Membranes Moist - Neck Exam Neck Exam: Normal Inspection - Respiratory Exam Respiratory Exam: Clear to Ausculation Bilateral, NORMAL BREATHING PATTERN. absent: Rhonchi, Wheezes, Respiratory Distress - Cardiovascular Exam Cardiovascular Exam: REGULAR RHYTHM, +S1, +S2 (s/p MV replacement, surgical scar examined, nontender, no erythema or discharge noted ) - GI/Abdominal Exam GI & Abdominal Exam: Soft. absent: Tenderness - Extremities Exam Extremities Exam: Pedal Edema, Tenderness - Back Exam Back Exam: NORMAL INSPECTION - Neurological Exam Neurological Exam: Alert, Awake, CN II-XII Intact, Oriented x3 Neuro motor strength exam: Left Upper Extremity: 4, Right Upper Extremity: 4, Left Lower Extremity: 4, Right Lower Extremity: 4 Additional comments: Strength equal b/l UEs and LEs, No pronator drift, Pupils equal and reactive to light b/l, patient is AAOx3 - Psychiatric Exam Psychiatric exam: Normal Affect - Skin Skin Exam: Normal Color Assessment and Plan - Assessment and Plan (Free Text) Assessment: A/P: 47 y/o F with a PMHx of hypothyrodisim, HTN, morbid obesity, rheumatic mitral valve disease and AFib, S/P 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 --Afebrile, vitals stable --Cardiology on board, Dr Villalobos, recommendations appreciated --Recovering well from surgery, s/p open MV replacement, c/w ASA/Eliquis/Lipitor/Lasix/Losartan/Metoprolol --Lower extremities swelling and pain: C/w Lasix --Pending CT head for left arm weakness/numbness --C/w Levothyroxine --Continue with PO antibiotics/ Augmentin --Continue with physical therapy --Continue plan as ordered Case discussed with Dr Mirza <Roberto Mirza - Last Filed: 07/29/18 08:41> Objective - Vital Signs/Intake and Output Vital Signs (last 24 hours): Temp Pulse Resp BP Pulse Ox 98.0 F 79 20 115/78 95 07/29/18 08:16 07/29/18 08:16 07/29/18 08:16 07/29/18 08:16 07/29/18 08:16 - Medications Medications: Current Medications Acetaminophen (Tylenol 325mg Tab) 650 mg PO Q6 PRN PRN Reason: Pain, Mild (1-3) Amoxicillin/Clavulanate Potassium (Augmentin 875 Mg-125 Mg Tab) 1 tab PO Q12 [facility]; Protocol Last Admin: 07/28/18 21:16 Dose: 1 tab Apixaban (Eliquis) 5 mg PO Q12 [facility]; Protocol Last Admin: 07/28/18 21:15 Dose: 5 mg Aspirin (Ecotrin) 81 mg PO DAILY [facility] Last Admin: 07/28/18 09:42 Dose: 81 mg Atorvastatin Calcium (Lipitor) 10 mg PO HS [facility] Last Admin: 07/28/18 21:15 Dose: 10 mg Docusate Sodium (Colace) 100 mg PO BID [facility] Last Admin: 07/28/18 16:34 Dose: Not Given Furosemide (Lasix) 40 mg PO BID@0600,1400 [facility] Last Admin: 07/29/18 06:25 Dose: Not Given Guaifenesin (Robitussin) 100 mg PO Q6 PRN PRN Reason: Cough Levalbuterol HCl (Xopenex) 0.63 mg INH RQ6 PRN PRN Reason: Shortness of Breath Levothyroxine Sodium (Synthroid) 225 mcg PO DAILY@0630 [facility] Last Admin: 07/29/18 06:25 Dose: 225 mcg Losartan Potassium (Cozaar) 25 mg PO DAILY [facility] Last Admin: 07/28/18 09:42 Dose: 25 mg Metoprolol Tartrate (Lopressor) 75 mg PO BID [facility] Last Admin: 07/28/18 16:35 Dose: 75 mg Oxycodone/Acetaminophen (Percocet 5/325 Mg Tab) 1 tab PO Q6 PRN PRN Reason: for pain level 4-7 Stop: 07/29/18 20:48 Last Admin: 07/29/18 06:32 Dose: 1 tab Pantoprazole Sodium (Protonix Ec Tab) 40 mg PO DAILY [facility] Last Admin: 07/28/18 09:41 Dose: 40 mg Polyethylene Glycol (Miralax) 17 gm PO DAILY PRN PRN Reason: Constipation Potassium Chloride (Klor-Con 10) 10 meq PO DAILY [facility] Last Admin: 07/28/18 09:42 Dose: 10 meq - Labs Labs: 07/29/18 07:00 07/29/18 07:00 Assessment and Plan - Assessment and Plan (Free Text) Assessment: Patient was personally seen and examined by me in rounds with residents. Available labs and diagnostic data reviewed. Case, Patient's condition and management plan discussed with residents in rounds. Agree with resident's progress note. Plan: As ordered.
[2018-07-29 07:55] LABS: BLOOD UREA NITROGEN 9 mg/dl (7-17); CALCIUM 8.7 mg/dL (8.4-10.2); GFR NON-AFRICAN AMERICAN > 60
[2018-07-29] MEDS: Amoxicillin-Clav 875-125 mg Tab PO SCH ×2 (09:18→22:23)
[2018-07-29] MEDS: Pantoprazole 40 mg EC Tab PO SCH (09:21)
[2018-07-29] MEDS: Potassium Chloride 10 mEq ER Tab PO SCH (09:21)
[2018-07-30] MEDS: Levothyroxine 75 MCG TAB PO SCH (06:10)
[2018-07-30] MEDS: Amoxicillin-Clav 875-125 mg Tab PO SCH (08:56)
[2018-07-30] MEDS: Potassium Chloride 10 mEq ER Tab PO SCH (08:57)
[2018-07-30] MEDS: Pantoprazole 40 mg EC Tab PO SCH (08:57)
--- NOTE | 2018-07-30 09:00 | CP.PCM.PN ---
<Zeyad Bahena - Last Filed: 07/30/18 09:06> Subjective - Date & Time of Evaluation Date of Evaluation: 07/30/18 Time of Evaluation: 07:00 - Subjective Subjective: Patient seen and examined this morning with Dr. Mirza. No acute event recorded overnight, patient is still c/o intermittent improved left arm weakness/numbness, reports good progress with PT/Exercise. Tolerating po, denies any chest pain, SOB or abdominal pain. Reports improved pain. - Continues to use Oxygen, desaturation noted w/o NC: possible 6min walk test for evaluation of home oxygen use Objective - Vital Signs/Intake and Output Vital Signs (last 24 hours): Temp Pulse Resp BP Pulse Ox 98.1 F 74 20 115/79 97 07/30/18 06:19 07/30/18 06:19 07/30/18 06:19 07/30/18 06:19 07/30/18 06:19 - Medications Medications: Current Medications Acetaminophen (Tylenol 325mg Tab) 650 mg PO Q6 PRN PRN Reason: Pain, Mild (1-3) Last Admin: 07/29/18 16:20 Dose: 650 mg Amoxicillin/Clavulanate Potassium (Augmentin 875 Mg-125 Mg Tab) 1 tab PO Q12 [facility]; Protocol Last Admin: 07/29/18 22:23 Dose: 1 tab Apixaban (Eliquis) 5 mg PO Q12 [facility]; Protocol Last Admin: 07/29/18 21:48 Dose: 5 mg Aspirin (Ecotrin) 81 mg PO DAILY [facility] Last Admin: 07/29/18 09:21 Dose: 81 mg Atorvastatin Calcium (Lipitor) 10 mg PO HS [facility] Last Admin: 07/29/18 21:48 Dose: 10 mg Docusate Sodium (Colace) 100 mg PO BID [facility] Last Admin: 07/29/18 16:18 Dose: Not Given Furosemide (Lasix) 40 mg PO BID@0600,1400 [facility] Last Admin: 07/30/18 06:09 Dose: 40 mg Guaifenesin (Robitussin) 100 mg PO Q6 PRN PRN Reason: Cough Levalbuterol HCl (Xopenex) 0.63 mg INH RQ6 PRN PRN Reason: Shortness of Breath Levothyroxine Sodium (Synthroid) 225 mcg PO DAILY@0630 [facility] Last Admin: 07/30/18 06:10 Dose: 225 mcg Losartan Potassium (Cozaar) 25 mg PO DAILY [facility] Last Admin: 07/29/18 09:21 Dose: 25 mg Metoprolol Tartrate (Lopressor) 75 mg PO BID [facility] Last Admin: 07/29/18 16:19 Dose: 75 mg Oxycodone/Acetaminophen (Percocet 5/325 Mg Tab) 1 tab PO Q6 PRN PRN Reason: Pain, moderate (4-7) Stop: 08/01/18 21:57 Last Admin: 07/29/18 22:02 Dose: 1 tab Pantoprazole Sodium (Protonix Ec Tab) 40 mg PO DAILY [facility] Last Admin: 07/29/18 09:21 Dose: 40 mg Polyethylene Glycol (Miralax) 17 gm PO DAILY PRN PRN Reason: Constipation Potassium Chloride (Klor-Con 10) 10 meq PO DAILY [facility] Last Admin: 07/29/18 09:21 Dose: 10 meq - Labs Labs: 07/29/18 07:00 07/29/18 07:00 - Constitutional Appears: No Acute Distress - Head Exam Head Exam: NORMAL INSPECTION - Eye Exam Eye Exam: EOMI, Normal appearance, PERRL Pupil Exam: NORMAL ACCOMODATION - ENT Exam ENT Exam: Mucous Membranes Moist - Neck Exam Neck Exam: Normal Inspection - Respiratory Exam Respiratory Exam: Clear to Ausculation Bilateral, NORMAL BREATHING PATTERN. absent: Wheezes Additional comments: on NC - Cardiovascular Exam Cardiovascular Exam: REGULAR RHYTHM, +S1, +S2 Additional comments: s/p MV replacement, surgical scar examined, nontender, no erythema or discharge noted - GI/Abdominal Exam GI & Abdominal Exam: Distended, Soft. 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 --Desaturation w/o oxygen use at rest: 6 mins walk test today, possible home oxygen if continues desaturation --Cardiology on board, Dr Villalobos, recommendations appreciated --Recovering well from surgery, s/p open MV replacement, c/w ASA/Eliquis/Lipitor/Lasix/Losartan/Metoprolol --Valvular A.fib: C/w ASA and Eliquis (No warfarin, eliquis with good results as per cardio) --Lower extremities swelling and pain: C/w Lasix --Intermittent left arm weakness/numbness: Possibly due to surgery/inactivity, CT head 07/29: no new changes, + old infract --C/w Levothyroxine --Continue with PO antibiotics/ Augmentin --Continue with physical therapy --Continue plan as ordered Case discussed with Dr Mirza, agrees with plan <Roberto Mirza - Last Filed: 07/31/18 10:34> Objective - Vital Signs/Intake and Output Vital Signs (last 24 hours): Temp Pulse Resp BP Pulse Ox 97.9 F 87 20 107/73 98 07/31/18 10:01 07/31/18 10:01 07/31/18 10:01 07/31/18 10:01 07/31/18 10:01 - Medications Medications: Current Medications Acetaminophen (Tylenol 325mg Tab) 650 mg PO Q6 PRN PRN Reason: Pain, Mild (1-3) Last Admin: 07/30/18 17:27 Dose: 650 mg Apixaban (Eliquis) 5 mg PO Q12 [facility]; Protocol Last Admin: 07/31/18 08:40 Dose: 5 mg Aspirin (Ecotrin) 81 mg PO DAILY [facility] Last Admin: 07/31/18 08:39 Dose: 81 mg Atorvastatin Calcium (Lipitor) 10 mg PO HS [facility] Last Admin: 07/30/18 22:28 Dose: 10 mg Docusate Sodium (Colace) 100 mg PO BID [facility] Last Admin: 07/31/18 08:44 Dose: Not Given Furosemide (Lasix) 40 mg PO BID@0600,1400 [facility] Last Admin: 07/31/18 07:30 Dose: 40 mg Guaifenesin (Robitussin) 100 mg PO Q6 PRN PRN Reason: Cough Piperacillin Sod/Tazobactam (Sod 3.375 gm/ Sodium Chloride) 100 mls @ 100 mls/hr IVPB 0600,1200,1800,0000 [facility]; Protocol Last Admin: 07/31/18 06:38 Dose: 100 mls/hr Levalbuterol HCl (Xopenex) 0.63 mg INH RQ6 PRN PRN Reason: Shortness of Breath Levothyroxine Sodium (Synthroid) 225 mcg PO DAILY@0630 [facility] Last Admin: 07/31/18 06:37 Dose: 225 mcg Losartan Potassium (Cozaar) 25 mg PO DAILY [facility] Last Admin: 07/31/18 08:40 Dose: 25 mg Metoprolol Tartrate (Lopressor) 75 mg PO BID [facility] Last Admin: 07/31/18 08:39 Dose: 75 mg Oxycodone/Acetaminophen (Percocet 5/325 Mg Tab) 1 tab PO Q6 PRN PRN Reason: Pain, moderate (4-7) Stop: 08/01/18 21:57 Last Admin: 07/31/18 08:38 Dose: 1 tab Pantoprazole Sodium (Protonix Ec Tab) 40 mg PO DAILY [facility] Last Admin: 07/31/18 08:39 Dose: 40 mg Polyethylene Glycol (Miralax) 17 gm PO DAILY PRN PRN Reason: Constipation Potassium Chloride (Klor-Con 10) 10 meq PO DAILY [facility] Last Admin: 07/30/18 08:57 Dose: 10 meq - Labs Labs: 07/29/18 07:00 07/29/18 07:00 Assessment and Plan - Assessment and Plan (Free Text) Assessment: Patient was personally seen and examined by me in rounds with residents. Available labs and diagnostic data reviewed. Case, Patient's condition and management plan discussed with residents in rounds. Agree with resident's progress note. Plan: As ordered.
[2018-07-30] MEDS: Oxycodone/Acetaminophen 5/325 mg Tab PO PRN ×2 (09:04→22:25)
--- NOTE | 2018-07-30 16:31 | CP.PCM.CON ---
History of Present Illness - History of Present Illness History of Present Illness: Pulmonary consult for a 47 y/o F, in the TCU at [facility], due to Hospital Acquired PNA, s/p MVR on 07/09/18 at [facility], Pt was brought to this unit on 07/24/18 for continue abx course and to benefit from PT/OT. Worsening symptoms: Occasional cough with scant amount of clear thin phlegms, desaturates between 82-88% off O2, morbid obesity BMI 49.1 Aggravated factor: Movements/exercise/ADL's. PMHx: s/p Precutaneous Mitral Valvuloplastic on 2000 at [facility], HTN, A Fib 2018 on Eliquis, Knees O/A, Chronic Back pain 2nd to Herniated Disks L3- L4, Hypothyroidism, former smoker of 30 pack/year, quit 2000. Pt denied: Fever, chills, n/v/d, abdominal pain, urinary symptoms, CP, sick contact, recent travel out of [place]. CXR on 07/24/18: Mild pulmonary venous congestion with b/l lower lobes alveolar type infiltrates and b/l effusions R > L. CXR on 07/26/18 showed: No pulmonary vascular congestion/pleural effusion or infiltrate b/l. EKG: A Fib Review of Systems - Constitutional Constitutional: Weakness - EENT Eyes: Other (negative) Ears: Other (negative) Nose/Mouth/Throat: Other (negative) - Cardiovascular Cardiovascular: Irregular Heart Rhythm, Pedal Edema - Respiratory Respiratory: Cough, Dyspnea on Exertion - Gastrointestinal Gastrointestinal: Other (negative) - Genitourinary Genitourinary: Other (negative) - Musculoskeletal Musculoskeletal: Back Pain - Integumentary Integumentary: Other (midsternal healed scar from surgery) - Neurological Neurological: Numbness (L arm), Weakness - Psychiatric Psychiatric: Other (negative) - Endocrine Endocrine: Other (morbid obesity) - Hematologic/Lymphatic Hematologic: Other (negtaive) Past Patient History - Past Medical History & Family History Pertinent Family History: Unknown - Past Social History Smoking Status: Former Smoker Alcohol: None Drugs: Denies Home Situation {Lives}: Alone - CARDIAC Hx Cardiac Disorders: Yes Hx Atrial Fibrillation: Yes Hx Hypertension: Yes Hx Mitral Valve Prolapse: Yes - PULMONARY Hx Respiratory Disorders: Yes Hx Pneumonia: Yes - NEUROLOGICAL Hx Neurological Disorder: No - RENAL Hx Chronic Kidney Disease: No - ENDOCRINE/METABOLIC Other/Comment: Morbid Obesity BMI 49.1 - HEMATOLOGICAL/ONCOLOGICAL Hx Blood Disorders: No Hx AIDS: No Hx Human Immunodeficiency Virus (HIV): No - INTEGUMENTARY Hx Dermatological Problems: No - MUSCULOSKELETAL/RHEUMATOLOGICAL Hx Musculoskeletal Disorders: Yes Hx Arthritis: Yes Hx Back Pain: Yes Hx Falls: No Hx Herniated Disk: Yes - GASTROINTESTINAL Hx Gastrointestinal Disorders: No - GENITOURINARY/GYNECOLOGICAL Hx Genitourinary Disorders: No - PSYCHIATRIC Hx Psychophysiologic Disorder: No Hx Substance Use: No - SURGICAL HISTORY Hx Surgeries: Yes Other/Comment: Precutaneous Mitral Valvuloplastic 2000. MVR 07/09/2018. - ANESTHESIA Hx Anesthesia: Yes Hx Anesthesia Reactions: No Meds Allergies/Adverse Reactions: Allergies Allergy/AdvReac Type Severity Reaction Status Date / Time naproxen Allergy RASH Verified 07/23/18 17:48 - Medications Medications: Current Medications Acetaminophen (Tylenol 325mg Tab) 650 mg PO Q6 PRN PRN Reason: Pain, Mild (1-3) Last Admin: 07/29/18 16:20 Dose: 650 mg Amoxicillin/Clavulanate Potassium (Augmentin 875 Mg-125 Mg Tab) 1 tab PO Q12 [facility]; Protocol Last Admin: 07/30/18 08:56 Dose: 1 tab Apixaban (Eliquis) 5 mg PO Q12 [facility]; Protocol Last Admin: 07/30/18 08:57 Dose: 5 mg Aspirin (Ecotrin) 81 mg PO DAILY [facility] Last Admin: 07/30/18 08:57 Dose: 81 mg Atorvastatin Calcium (Lipitor) 10 mg PO HS [facility] Last Admin: 07/29/18 21:48 Dose: 10 mg Docusate Sodium (Colace) 100 mg PO BID [facility] Last Admin: 07/30/18 08:56 Dose: 100 mg Furosemide (Lasix) 40 mg PO BID@0600,1400 [facility] Last Admin: 07/30/18 14:19 Dose: Not Given Guaifenesin (Robitussin) 100 mg PO Q6 PRN PRN Reason: Cough Levalbuterol HCl (Xopenex) 0.63 mg INH RQ6 PRN PRN Reason: Shortness of Breath Levothyroxine Sodium (Synthroid) 225 mcg PO DAILY@0630 [facility] Last Admin: 07/30/18 06:10 Dose: 225 mcg Losartan Potassium (Cozaar) 25 mg PO DAILY [facility] Last Admin: 07/30/18 08:56 Dose: 25 mg Metoprolol Tartrate (Lopressor) 75 mg PO BID [facility] Last Admin: 07/30/18 08:57 Dose: 75 mg Oxycodone/Acetaminophen (Percocet 5/325 Mg Tab) 1 tab PO Q6 PRN PRN Reason: Pain, moderate (4-7) Stop: 08/01/18 21:57 Last Admin: 07/30/18 09:04 Dose: 1 tab Pantoprazole Sodium (Protonix Ec Tab) 40 mg PO DAILY [facility] Last Admin: 07/30/18 08:57 Dose: 40 mg Polyethylene Glycol (Miralax) 17 gm PO DAILY PRN PRN Reason: Constipation Potassium Chloride (Klor-Con 10) 10 meq PO DAILY [facility] Last Admin: 07/30/18 08:57 Dose: 10 meq Physical Exam - Constitutional Appears: No Acute Distress - Head Exam Head Exam: NORMAL INSPECTION - Eye Exam Eye Exam: PERRL - ENT Exam ENT Exam: Normal Exam - Neck Exam Neck exam: Positive for: Normal Inspection - Respiratory Exam Respiratory Exam: Decreased Breath Sounds (at bases) - Cardiovascular Exam Cardiovascular Exam: Irregular Rhythm, Systolic Murmur Additional comments: Surgical scar healed, open to air, with non tenderness, erythema or bleeding - GI/Abdominal Exam GI & Abdominal Exam: Normal Bowel Sounds, Soft - Extremities Exam Extremities exam: Positive for: pedal edema - Neurological Exam Neurological exam: Alert, Oriented x3, Reflexes Normal Additional comments: Slow steady gait - Psychiatric Exam Psychiatric exam: Normal Affect, Normal Mood - Skin Skin Exam: Warm Results - Vital Signs Recent Vital Signs: Last Vital Signs Temp 98.1 F 07/30/18 06:19 Pulse 65 07/30/18 08:57 Resp 20 07/30/18 06:19 BP 121/81 07/30/18 08:57 Pulse Ox 97 07/30/18 06:19 reviewed J.P. - Labs Result Diagrams: 07/29/18 07:00 07/29/18 07:00 Labs: reviewed J.P. - EKG Data EKG comments: reviewed J.P. - Imaging and Cardiology Chest x-ray Status: Report reviewed by me (Ana) Assessment & Plan (1) Hospital acquired PNA Status: Acute Priority: High (2) Hypoxemia Status: Acute Priority: High Comment: Requiring O2. (3) COPD (chronic obstructive pulmonary disease) Status: Chronic Priority: Medium (4) S/P MVR (mitral valve repair) Status: Acute Priority: High (5) Morbid obesity with BMI of 45.0-49.9, adult Status: Chronic Priority: High - Assessment and Plan (Free Text) Plan: Pt desaturates 83% at 6 minutes walking, continue O2 NC 2 L/M, Augmentin, f/u Chest CT to asses PNA status. - Date & Time Date: 07/30/18 Time: 12:30
[2018-07-30] MEDS: Piperacillin/Tazobact 3.375 GM in Sodium Chloride 0.9% 100 ML IVPB SCH (23:26)
[2018-07-31] MEDS: Levothyroxine 75 MCG TAB PO SCH (06:37)
[2018-07-31] MEDS: Piperacillin/Tazobact 3.375 GM in Sodium Chloride 0.9% 100 ML IVPB SCH ×4 (06:38→23:10)
[2018-07-31] MEDS: Oxycodone/Acetaminophen 5/325 mg Tab PO PRN ×2 (08:38→21:43)
[2018-07-31] MEDS: Pantoprazole 40 mg EC Tab PO SCH (08:39)
--- NOTE | 2018-07-31 11:58 | PN ---
DATE: 07/31/2018 SUBJECTIVE: The patient seen and examined. Interim events noted. Consults noted and appreciated. Pulmonary followup and intervention noted and appreciated. The patient remains in Transitional Care Unit. Feels okay. Denies any chest pain or shortness of breath, but the patient failed 6-minute walk test and also was having drop in saturation. Pulmonary consult was done. CAT scan was done which showed bilateral . The patient denies any cough and chest pain at this time. PHYSICAL EXAMINATION: GENERAL: The patient is in no acute distress. VITAL SIGNS: Stable. HEART: S1 and S2. Normal and regular. LUNGS: Good bilateral air exchange. ABDOMEN: Soft and nontender. EXTREMITIES: No edema, no calf swelling, no tenderness. No acute ischemia. CENTRAL NERVOUS SYSTEM: Essentially unchanged. DIAGNOSTIC DATA: Available diagnostic data reviewed. ASSESSMENT AND PLAN: Overall, the patient is medically stable. Plan as ordered. Roberto Mirza MD
[2018-07-31] MEDS: Potassium Chloride 10 mEq ER Tab PO SCH (12:27)
--- NOTE | 2018-07-31 17:03 | CP.PCM.PN ---
Subjective - Date & Time of Evaluation Date of Evaluation: 07/31/18 Time of Evaluation: 12:00 - Subjective Subjective: F/U Pulmonary consult. PNA Cough with productive yellowish phlegms. Objective - Vital Signs/Intake and Output Vital Signs (last 24 hours): Temp Pulse Resp BP Pulse Ox 97.5 F L 60 20 103/69 99 07/31/18 16:14 07/31/18 16:59 07/31/18 16:14 07/31/18 16:59 07/31/18 16:14 - Medications Medications: Current Medications Acetaminophen (Tylenol 325mg Tab) 650 mg PO Q6 PRN PRN Reason: Pain, Mild (1-3) Last Admin: 07/30/18 17:27 Dose: 650 mg Apixaban (Eliquis) 5 mg PO Q12 [facility]; Protocol Last Admin: 07/31/18 08:40 Dose: 5 mg Aspirin (Ecotrin) 81 mg PO DAILY [facility] Last Admin: 07/31/18 08:39 Dose: 81 mg Atorvastatin Calcium (Lipitor) 10 mg PO HS [facility] Last Admin: 07/30/18 22:28 Dose: 10 mg Docusate Sodium (Colace) 100 mg PO BID [facility] Last Admin: 07/31/18 17:00 Dose: Not Given Furosemide (Lasix) 40 mg PO BID@0600,1400 [facility] Last Admin: 07/31/18 15:00 Dose: 40 mg Guaifenesin (Robitussin) 100 mg PO Q6 PRN PRN Reason: Cough Piperacillin Sod/Tazobactam (Sod 3.375 gm/ Sodium Chloride) 100 mls @ 100 mls/hr IVPB 0600,1200,1800,0000 [facility]; Protocol Last Admin: 07/31/18 17:01 Dose: 100 mls/hr Levalbuterol HCl (Xopenex) 0.63 mg INH RQ6 PRN PRN Reason: Shortness of Breath Levothyroxine Sodium (Synthroid) 225 mcg PO DAILY@0630 [facility] Last Admin: 07/31/18 06:37 Dose: 225 mcg Losartan Potassium (Cozaar) 25 mg PO DAILY [facility] Last Admin: 07/31/18 08:40 Dose: 25 mg Metoprolol Tartrate (Lopressor) 75 mg PO BID [facility] Last Admin: 07/31/18 16:59 Dose: 75 mg Oxycodone/Acetaminophen (Percocet 5/325 Mg Tab) 1 tab PO Q6 PRN PRN Reason: Pain, moderate (4-7) Stop: 08/01/18 21:57 Last Admin: 07/31/18 08:38 Dose: 1 tab Pantoprazole Sodium (Protonix Ec Tab) 40 mg PO DAILY [facility] Last Admin: 07/31/18 08:39 Dose: 40 mg Polyethylene Glycol (Miralax) 17 gm PO DAILY PRN PRN Reason: Constipation Potassium Chloride (Klor-Con 10) 10 meq PO DAILY [facility] Last Admin: 07/31/18 12:27 Dose: 10 meq - Labs Labs: 07/29/18 07:00 07/29/18 07:00 - Constitutional Appears: No Acute Distress - Head Exam Head Exam: NORMAL INSPECTION - Eye Exam Eye Exam: PERRL - ENT Exam ENT Exam: Normal Exam - Neck Exam Neck Exam: Normal Inspection - Respiratory Exam Respiratory Exam: Decreased Breath Sounds (at bases) - Cardiovascular Exam Cardiovascular Exam: Irregular Rhythm, Murmur (systolic) Additional comments: Surgical scar healed, non tenderness/erythema or bleeding - GI/Abdominal Exam GI & Abdominal Exam: Soft, Normal Bowel Sounds - Extremities Exam Extremities Exam: Normal Inspection - Back Exam Back Exam: NORMAL INSPECTION - Neurological Exam Neurological Exam: Alert, Oriented x3, Reflexes Normal - Psychiatric Exam Psychiatric exam: Normal Mood - Skin Skin Exam: Warm Assessment and Plan (1) Hospital acquired PNA Status: Acute (2) Hypoxemia Status: Acute (3) COPD (chronic obstructive pulmonary disease) Status: Chronic (4) S/P MVR (mitral valve repair) Status: Acute (5) Morbid obesity with BMI of 45.0-49.9, adult Status: Chronic - Assessment and Plan (Free Text) Plan: Continue O2 NC, Zosyn, Xopenex, Robitussin and rest of Tx.
[2018-07-31] MEDS ORDERED: Sodium Chloride 3% for Inhalation 4 ML VIAL.NEB IH PRN (17:07)
[2018-08-01] MEDS: Levothyroxine 75 MCG TAB PO SCH (06:39)
[2018-08-01 08:26] LABS: INR 1.4; PROTHROMBIN TIME 16.1 Seconds (9.8-13.1)
[2018-08-01] MEDS: Pantoprazole 40 mg EC Tab PO SCH (09:29)
[2018-08-01] MEDS: Amoxicillin-Clav 875-125 mg Tab PO SCH ×2 (09:30→21:17)
[2018-08-01] MEDS: Potassium Chloride 10 mEq ER Tab PO SCH (09:33)
[2018-08-01] MEDS: Oxycodone/Acetaminophen 5/325 mg Tab PO PRN ×2 (10:25→21:21)
--- NOTE | 2018-08-01 17:16 | RAD ---
Date of service: 08/01/2018 HISTORY: Chest pain COMPARISON: Comparison made with chest radiograph dated 07/26/2018 TECHNIQUE: 1 view obtained. FINDINGS: LUNGS: Questionable minor chronic compensated pulmonary venous congestion. PLEURA: No significant pleural effusion identified, no pneumothorax apparent. CARDIOVASCULAR: No aortic atherosclerotic calcification present. Cardiomegaly. Sternotomy wires again noted. No pulmonary vascular congestion. OSSEOUS STRUCTURES: No significant abnormalities. VISUALIZED UPPER ABDOMEN: Normal. OTHER FINDINGS: None. IMPRESSION: Questionable minor chronic compensated pulmonary venous congestion. The megaly.
--- NOTE | 2018-08-01 19:00 | CP.PCM.PN ---
Subjective - Date & Time of Evaluation Date of Evaluation: 08/01/18 Time of Evaluation: 16:00 - Subjective Subjective: F/U Pulmonary consult Chest pain on anterior chest wall and L scapular with movements, no SOB on O2 Objective - Vital Signs/Intake and Output Vital Signs (last 24 hours): Temp Pulse Resp BP Pulse Ox 97.8 F 62 20 105/73 98 08/01/18 15:45 08/01/18 16:04 08/01/18 15:45 08/01/18 16:04 08/01/18 15:45 - Medications Medications: Current Medications Acetaminophen (Tylenol 325mg Tab) 650 mg PO Q6 PRN PRN Reason: Pain, Mild (1-3) Last Admin: 08/01/18 16:05 Dose: 650 mg Amoxicillin/Clavulanate Potassium (Augmentin 875 Mg-125 Mg Tab) 1 tab PO Q12 [facility]; Protocol Last Admin: 08/01/18 09:30 Dose: 1 tab Apixaban (Eliquis) 5 mg PO Q12 [facility]; Protocol Last Admin: 08/01/18 09:32 Dose: 5 mg Aspirin (Ecotrin) 81 mg PO DAILY [facility] Last Admin: 08/01/18 09:32 Dose: 81 mg Atorvastatin Calcium (Lipitor) 10 mg PO HS [facility] Last Admin: 07/31/18 21:44 Dose: 10 mg Docusate Sodium (Colace) 100 mg PO BID [facility] Last Admin: 08/01/18 16:04 Dose: Not Given Furosemide (Lasix) 40 mg PO BID@0600,1400 [facility] Last Admin: 08/01/18 13:55 Dose: 40 mg Guaifenesin (Robitussin) 100 mg PO Q6 PRN PRN Reason: Cough Piperacillin Sod/Tazobactam (Sod 3.375 gm/ Sodium Chloride) 100 mls @ 100 mls/hr IVPB 0600,1200,1800,0000 [facility]; Protocol Last Admin: 07/31/18 23:10 Dose: 100 mls/hr Levalbuterol HCl (Xopenex) 0.63 mg INH RQ6 PRN PRN Reason: Shortness of Breath Levothyroxine Sodium (Synthroid) 225 mcg PO DAILY@0630 [facility] Last Admin: 08/01/18 06:39 Dose: 225 mcg Losartan Potassium (Cozaar) 25 mg PO DAILY [facility] Last Admin: 08/01/18 09:32 Dose: 25 mg Metoprolol Tartrate (Lopressor) 75 mg PO BID [facility] Last Admin: 08/01/18 16:04 Dose: 75 mg Oxycodone/Acetaminophen (Percocet 5/325 Mg Tab) 1 tab PO Q6 PRN PRN Reason: Pain, moderate (4-7) Stop: 08/01/18 21:57 Last Admin: 08/01/18 10:25 Dose: 1 tab Pantoprazole Sodium (Protonix Ec Tab) 40 mg PO DAILY [facility] Last Admin: 08/01/18 09:29 Dose: 40 mg Polyethylene Glycol (Miralax) 17 gm PO DAILY PRN PRN Reason: Constipation Potassium Chloride (Klor-Con 10) 10 meq PO DAILY [facility] Last Admin: 08/01/18 09:33 Dose: 10 meq - Labs Labs: 07/29/18 07:00 07/29/18 07:00 PT 16.1 Seconds (9.8-13.1) H 08/01/18 07:00 INR 1.4 08/01/18 07:00 - Constitutional Appears: No Acute Distress - Head Exam Head Exam: NORMAL INSPECTION - Eye Exam Eye Exam: PERRL - ENT Exam ENT Exam: Normal Exam - Neck Exam Neck Exam: Normal Inspection - Respiratory Exam Respiratory Exam: Decreased Breath Sounds (at bases) Additional comments: Tenderness anterior chest wall and L scapular. - Cardiovascular Exam Cardiovascular Exam: Irregular Rhythm, Murmur (systolic) Additional comments: Midsternal surgical incision healing well - GI/Abdominal Exam GI & Abdominal Exam: Soft, Normal Bowel Sounds - Extremities Exam Extremities Exam: Pedal Edema - Back Exam Back Exam: NORMAL INSPECTION - Neurological Exam Neurological Exam: Alert, Oriented x3, Reflexes Normal - Psychiatric Exam Psychiatric exam: Normal Mood - Skin Skin Exam: Warm Assessment and Plan (1) Hospital acquired PNA Status: Acute (2) Hypoxemia Status: Acute (3) COPD (chronic obstructive pulmonary disease) Status: Chronic (4) S/P MVR (mitral valve repair) Status: Acute (5) Morbid obesity with BMI of 45.0-49.9, adult Status: Chronic - Assessment and Plan (Free Text) Plan: EKG, CXR, continue O2 NC, Augmentin po today, midline in AM to continue with Zosyn IV
[2018-08-02] MEDS: Levothyroxine 75 MCG TAB PO SCH (06:34)
--- NOTE | 2018-08-02 09:14 | CARD ---
APPROVED REPORT Date of service: 08/01/2018 EKG Measurement Heart [id number] <Conclusion> Atrial fibrillation with a competing junctional pacemaker Rightward axis Abnormal ECG
[2018-08-02] MEDS: Amoxicillin-Clav 875-125 mg Tab PO SCH (10:00)
[2018-08-02] MEDS: Pantoprazole 40 mg EC Tab PO SCH (10:00)
[2018-08-02] MEDS: Potassium Chloride 10 mEq ER Tab PO SCH (10:00)
--- NOTE | 2018-08-02 11:01 | PN ---
DATE: 08/02/2018 SUBJECTIVE: The patient seen and examined. Interim events noted. Consults noted and appreciated. Pulmonary followup and intervention noted and appreciated. The patient remains in transitional care unit. No specific complaint. No specific issue reported by nursing staff. PHYSICAL EXAMINATION: GENERAL: The patient is in no acute distress. VITAL SIGNS: Stable. Physical exam is essentially unchanged. DIAGNOSTIC DATA: Available diagnostic data reviewed. ASSESSMENT: The patient is on midline for continued IV antibiotic. Plan as ordered. Case and plan discussed with the patient . Roberto Mirza MD
[2018-08-02] MEDS ORDERED: Lidocaine Hydrochloride 1% 10 ML ONE (11:55)
--- NOTE | 2018-08-02 12:05 | PN ---
DATE: 08/01/2018 SUBJECTIVE: The patient is seen and examined. Interim events noted. Consults noted and appreciated. Pulmonary followup and intervention noted and appreciated. The patient remains in transitional care unit. The patient feels okay. Denies any specific complaints. The nursing staff reported the patient diarrhea and was not able to insert the IV, and the IV set was inserted. The patient was complaining of and was taken out. The issue was reported to mud analysis operator who suggested to continue the antibiotic until PICC line is tomorrow. PHYSICAL EXAMINATION: GENERAL: The patient is in no acute distress. VITAL SIGNS: Stable. HEART: S1 and S2, normal and regular. LUNGS: Good bilateral air exchange. ABDOMEN: Soft and nontender. EXTREMITIES: No edema, no calf swelling, no tenderness. No acute ischemia. CENTRAL NERVOUS SYSTEM: Essentially unchanged. DIAGNOSTIC DATA: Available diagnostic data reviewed. ASSESSMENT AND PLAN: Overall, the patient is clinically stable. Plan as ordered. Roberto Mirza MD
[2018-08-02] MEDS: Piperacillin/Tazobact 3.375 GM in Sodium Chloride 0.9% 100 ML IVPB SCH ×2 (12:55→17:29)
[2018-08-02] MEDS: Oxycodone/Acetaminophen 5/325 mg Tab PO PRN ×2 (13:53→22:37)
--- NOTE | 2018-08-02 14:22 | CP.PCM.PN ---
Subjective - Date & Time of Evaluation Date of Evaluation: 08/02/18 Time of Evaluation: 13:00 - Subjective Subjective: F/U Pulmonary consult. Minimal pain anterior chest wall and L shoulder with movements, no SOB with O2. Objective - Vital Signs/Intake and Output Vital Signs (last 24 hours): Temp Pulse Resp BP Pulse Ox 98.1 F 77 20 98/66 L 98 08/02/18 09:00 08/02/18 10:56 08/02/18 09:00 08/02/18 10:56 08/02/18 09:00 - Medications Medications: Current Medications Acetaminophen (Tylenol 325mg Tab) 650 mg PO Q6 PRN PRN Reason: Pain, Mild (1-3) Last Admin: 08/01/18 16:05 Dose: 650 mg Amoxicillin/Clavulanate Potassium (Augmentin 875 Mg-125 Mg Tab) 1 tab PO Q12 [facility]; Protocol Last Admin: 08/02/18 10:00 Dose: 1 tab Apixaban (Eliquis) 5 mg PO Q12 [facility]; Protocol Last Admin: 08/02/18 11:30 Dose: 5 mg Aspirin (Ecotrin) 81 mg PO DAILY [facility] Last Admin: 08/02/18 11:30 Dose: 81 mg Atorvastatin Calcium (Lipitor) 10 mg PO HS [facility] Last Admin: 08/01/18 21:18 Dose: 10 mg Docusate Sodium (Colace) 100 mg PO BID [facility] Last Admin: 08/02/18 10:00 Dose: Not Given Furosemide (Lasix) 40 mg PO BID@0600,1400 [facility] Last Admin: 08/02/18 13:50 Dose: Not Given Guaifenesin (Robitussin) 100 mg PO Q6 PRN PRN Reason: Cough Piperacillin Sod/Tazobactam (Sod 3.375 gm/ Sodium Chloride) 100 mls @ 100 mls/hr IVPB 0600,1200,1800,0000 [facility]; Protocol Last Admin: 08/02/18 12:55 Dose: 100 mls/hr Levalbuterol HCl (Xopenex) 0.63 mg INH RQ6 PRN PRN Reason: Shortness of Breath Levothyroxine Sodium (Synthroid) 225 mcg PO DAILY@0630 [facility] Last Admin: 08/02/18 06:34 Dose: 225 mcg Losartan Potassium (Cozaar) 25 mg PO DAILY [facility] Last Admin: 08/02/18 10:56 Dose: Not Given Metoprolol Tartrate (Lopressor) 75 mg PO BID [facility] Last Admin: 08/02/18 10:00 Dose: Not Given Oxycodone/Acetaminophen (Percocet 5/325 Mg Tab) 1 tab PO Q6 PRN PRN Reason: Pain, moderate (4-7) Stop: 08/04/18 22:13 Last Admin: 08/02/18 13:53 Dose: 1 tab Pantoprazole Sodium (Protonix Ec Tab) 40 mg PO DAILY [facility] Last Admin: 08/02/18 10:00 Dose: 40 mg Polyethylene Glycol (Miralax) 17 gm PO DAILY PRN PRN Reason: Constipation Potassium Chloride (Klor-Con 10) 10 meq PO DAILY [facility] Last Admin: 08/02/18 10:00 Dose: 10 meq - Labs Labs: 07/29/18 07:00 07/29/18 07:00 PT 16.1 Seconds (9.8-13.1) H 08/01/18 07:00 INR 1.4 08/01/18 07:00 - Constitutional Appears: No Acute Distress - Head Exam Head Exam: NORMAL INSPECTION - Eye Exam Eye Exam: PERRL - ENT Exam ENT Exam: Normal Exam - Neck Exam Neck Exam: Normal Inspection - Respiratory Exam Respiratory Exam: Decreased Breath Sounds (at bases) Additional comments: Minimal tenderness anterior chest wall and L scapular area - Cardiovascular Exam Cardiovascular Exam: Irregular Rhythm, Murmur (systolic) Additional comments: Mid-sternal surgical incision healing well. - GI/Abdominal Exam GI & Abdominal Exam: Soft, Normal Bowel Sounds - Extremities Exam Extremities Exam: Pedal Edema Additional comments: R arm midline - Back Exam Back Exam: NORMAL INSPECTION - Neurological Exam Neurological Exam: Alert, Oriented x3, Reflexes Normal - Psychiatric Exam Psychiatric exam: Normal Mood - Skin Skin Exam: Warm Assessment and Plan (1) Hospital acquired PNA Status: Acute (2) Hypoxemia Status: Acute (3) COPD (chronic obstructive pulmonary disease) Status: Chronic (4) S/P MVR (mitral valve repair) Status: Acute (5) Morbid obesity with BMI of 45.0-49.9, adult Status: Chronic
[2018-08-03] MEDS: Piperacillin/Tazobact 3.375 GM in Sodium Chloride 0.9% 100 ML IVPB SCH ×4 (00:16→17:07)
[2018-08-03 06:30] LABS: HEMOGLOBIN 11.7 g/dL (12.0-16.0); MEAN CELL VOLUME 86.1 fl (81.0-99.0); MEAN CORPUSCULAR HEMOGLOBIN 27.9 pg (27.0-31.0); MEAN CORPUSCULAR HGB CONC 32.4 g/dL (33.0-37.0); RBC 4.18 Mil/uL (3.80-5.20); RED CELL DISTRIBUTION WIDTH 16.6 % (11.5-14.5); WHITE BLOOD COUNT 7.8 K/uL (4.8-10.8)
[2018-08-03] MEDS: Levothyroxine 75 MCG TAB PO SCH (06:34)
[2018-08-03 06:44] LABS: ALB/GLOB RATIO 1.2 (1.0-2.1); ALT/SGPT 39 U/L (9-52); AST/SGOT 29 U/L (14-36); BLOOD UREA NITROGEN 9 mg/dl (7-17); CALCIUM 9.7 mg/dL (8.4-10.2); GFR NON-AFRICAN AMERICAN > 60
--- NOTE | 2018-08-03 07:22 | CP.PCM.PN ---
<Zeyad Bahena - Last Filed: 08/03/18 07:34> Subjective - Date & Time of Evaluation Date of Evaluation: 08/03/18 Time of Evaluation: 07:00 - Subjective Subjective: Patient seen and examined this morning with Dr. Mirza. MARIA ESTHER, S/p PICC Line for IV Abx (pneumonia), denies any acute event overnight. Denies any chest pain, SOB, abdominal pain or dizziness. Continues with PT Objective - Vital Signs/Intake and Output Vital Signs (last 24 hours): Temp Pulse Resp BP Pulse Ox 98.1 F 67 20 110/75 98 08/02/18 20:53 08/02/18 20:53 08/02/18 20:53 08/03/18 06:34 08/02/18 20:53 - Medications Medications: Current Medications Acetaminophen (Tylenol 325mg Tab) 650 mg PO Q6 PRN PRN Reason: Pain, Mild (1-3) Last Admin: 08/01/18 16:05 Dose: 650 mg Apixaban (Eliquis) 5 mg PO Q12 [facility]; Protocol Last Admin: 08/02/18 22:28 Dose: 5 mg Aspirin (Ecotrin) 81 mg PO DAILY [facility] Last Admin: 08/02/18 11:30 Dose: 81 mg Atorvastatin Calcium (Lipitor) 10 mg PO HS [facility] Last Admin: 08/02/18 22:28 Dose: 10 mg Docusate Sodium (Colace) 100 mg PO BID [facility] Last Admin: 08/02/18 17:28 Dose: Not Given Furosemide (Lasix) 40 mg PO BID@0600,1400 [facility] Last Admin: 08/03/18 06:34 Dose: 40 mg Guaifenesin (Robitussin) 100 mg PO Q6 PRN PRN Reason: Cough Piperacillin Sod/Tazobactam (Sod 3.375 gm/ Sodium Chloride) 100 mls @ 100 mls/hr IVPB 0600,1200,1800,0000 [facility]; Protocol Last Admin: 08/03/18 06:26 Dose: 100 mls/hr Levalbuterol HCl (Xopenex) 0.63 mg INH RQ6 PRN PRN Reason: Shortness of Breath Levothyroxine Sodium (Synthroid) 225 mcg PO DAILY@0630 [facility] Last Admin: 08/03/18 06:34 Dose: 225 mcg Losartan Potassium (Cozaar) 25 mg PO DAILY [facility] Last Admin: 08/02/18 10:56 Dose: Not Given Metoprolol Tartrate (Lopressor) 75 mg PO BID [facility] Last Admin: 08/02/18 17:28 Dose: 75 mg Oxycodone/Acetaminophen (Percocet 5/325 Mg Tab) 1 tab PO Q6 PRN PRN Reason: Pain, moderate (4-7) Stop: 08/04/18 22:13 Last Admin: 08/02/18 22:37 Dose: 1 tab Pantoprazole Sodium (Protonix Ec Tab) 40 mg PO DAILY [facility] Last Admin: 08/02/18 10:00 Dose: 40 mg Polyethylene Glycol (Miralax) 17 gm PO DAILY PRN PRN Reason: Constipation Potassium Chloride (Klor-Con 10) 10 meq PO DAILY [facility] Last Admin: 08/02/18 10:00 Dose: 10 meq - Labs Labs: 08/03/18 06:25 08/03/18 06:25 PT 16.1 Seconds (9.8-13.1) H 08/01/18 07:00 INR 1.4 08/01/18 07:00 - Constitutional Appears: No Acute Distress - Head Exam Head Exam: NORMAL INSPECTION - Eye Exam Eye Exam: EOMI, Normal appearance, PERRL Pupil Exam: NORMAL ACCOMODATION - ENT Exam ENT Exam: Mucous Membranes Moist - Neck Exam Neck Exam: Full ROM - Respiratory Exam Respiratory Exam: Decreased Breath Sounds, Clear to Ausculation Bilateral - Cardiovascular Exam Cardiovascular Exam: +S1, +S2 Additional comments: s/p MV replacement, surgical scar examined, nontender, no erythema or discharge noted - GI/Abdominal Exam GI & Abdominal Exam: Soft, Normal Bowel Sounds - Extremities Exam Extremities Exam: Pedal Edema, Tenderness - Back Exam Back Exam: absent: CVA tenderness (L), CVA tenderness (R) - Neurological Exam Neurological Exam: Alert, Awake, CN II-XII Intact, Oriented x3 Neuro motor strength exam: Left Upper Extremity: 4, Right Upper Extremity: 4, Left Lower Extremity: 4, Right Lower Extremity: 4 - Psychiatric Exam Psychiatric exam: Normal Affect - Skin Skin Exam: Normal Color Assessment and Plan - Assessment and Plan (Free Text) Assessment: A/P: 47 y/o F with a PMHx of hypothyrodisim, HTN, morbid obesity, rheumatic mitral valve disease and AFib, S/P Mitral replanter replacement and cardiac ablation >1 week ago and complicated by pneumonia, was admitted for rehabilitation and antibiotic therapy. --HCAP: Pulmonary consult appreciated, S/p PICC line, C/w Zosyn and NC (Hypoxemia) --Consult ID, f/u recommendations --Cardiology on board, Dr Villalobos, recommendations appreciated --Recovering well from surgery, s/p open MV replacement, c/w ASA/Eliquis/Lipitor/Lasix/Losartan/Metoprolol --Valvular A.fib: C/w ASA and Eliquis (No warfarin, eliquis with good results as per cardio) --Lower extremities swelling and pain: C/w Lasix --Intermittent left arm weakness/numbness: Possibly due to surgery/inactivity, CT head 07/29: no new changes, + old infract --C/w Levothyroxine --F/u Echocardio --Continue with physical therapy --Continue plan as ordered Case discussed and Patient seen with Dr. Mirza. <Roberto Mirza - Last Filed: 08/04/18 11:56> Objective - Vital Signs/Intake and Output Vital Signs (last 24 hours): Temp Pulse Resp BP Pulse Ox 98.0 F 81 18 108/74 96 08/04/18 08:22 08/04/18 10:32 08/04/18 08:22 08/04/18 10:32 08/04/18 10:32 - Medications Medications: Current Medications Acetaminophen (Tylenol 325mg Tab) 650 mg PO Q6 PRN PRN Reason: Pain, Mild (1-3) Last Admin: 08/01/18 16:05 Dose: 650 mg Apixaban (Eliquis) 5 mg PO Q12 [facility]; Protocol Last Admin: 08/04/18 09:29 Dose: 5 mg Aspirin (Ecotrin) 81 mg PO DAILY [facility] Last Admin: 08/04/18 09:31 Dose: 81 mg Atorvastatin Calcium (Lipitor) 10 mg PO HS [facility] Last Admin: 08/03/18 21:43 Dose: 10 mg Docusate Sodium (Colace) 100 mg PO BID [facility] Last Admin: 08/04/18 09:30 Dose: 100 mg Furosemide (Lasix) 40 mg PO BID@0600,1400 [facility] Last Admin: 08/03/18 13:59 Dose: 40 mg Guaifenesin (Robitussin) 100 mg PO Q6 PRN PRN Reason: Cough Piperacillin Sod/Tazobactam (Sod 3.375 gm/ Sodium Chloride) 100 mls @ 100 mls/hr IVPB 0600,1200,1800,0000 [facility]; Protocol Last Admin: 08/04/18 06:10 Dose: 100 mls/hr Lactobacillus Acidophilus (Bacid Acidophilus) 1 cap PO BID [facility] Levalbuterol HCl (Xopenex) 0.63 mg INH RQ6 PRN PRN Reason: Shortness of Breath Levothyroxine Sodium (Synthroid) 225 mcg PO DAILY@0630 [facility] Last Admin: 08/04/18 06:14 Dose: 225 mcg Losartan Potassium (Cozaar) 25 mg PO DAILY [facility] Last Admin: 08/04/18 09:31 Dose: 25 mg Metoprolol Tartrate (Lopressor) 50 mg PO BID [facility] Last Admin: 08/04/18 09:29 Dose: 50 mg Oxycodone/Acetaminophen (Percocet 5/325 Mg Tab) 1 tab PO Q6 PRN PRN Reason: Pain, moderate (4-7) Stop: 08/04/18 22:13 Last Admin: 08/04/18 09:29 Dose: 1 tab Pantoprazole Sodium (Protonix Ec Tab) 40 mg PO DAILY [facility] Last Admin: 08/04/18 09:30 Dose: 40 mg Polyethylene Glycol (Miralax) 17 gm PO DAILY PRN PRN Reason: Constipation Last Admin: 08/04/18 09:29 Dose: 17 gm Potassium Chloride (Klor-Con 10) 10 meq PO DAILY [facility] Last Admin: 08/04/18 09:29 Dose: 10 meq - Labs Labs: 08/04/18 06:20 08/04/18 06:20 PT 16.1 Seconds (9.8-13.1) H 08/01/18 07:00 INR 1.4 08/01/18 07:00 Assessment and Plan - Assessment and Plan (Free Text) Assessment: Patient was personally seen and examined by me in rounds with residents. Available labs and diagnostic data reviewed. Case, Patient's condition and management plan discussed with residents in rounds. Agree with resident's progress note. Plan: As ordered.
[2018-08-03] MEDS: Potassium Chloride 10 mEq ER Tab PO SCH (09:13)
[2018-08-03] MEDS: Pantoprazole 40 mg EC Tab PO SCH (09:14)
[2018-08-03] MEDS: Oxycodone/Acetaminophen 5/325 mg Tab PO PRN ×2 (09:20→21:46)
--- NOTE | 2018-08-03 15:35 | CP.PCM.PN ---
Subjective - Date & Time of Evaluation Date of Evaluation: 08/03/18 Time of Evaluation: 15:35 - Subjective Subjective: stable improving Objective - Vital Signs/Intake and Output Vital Signs (last 24 hours): Temp Pulse Resp BP Pulse Ox 98.0 F 86 20 111/77 98 08/03/18 10:49 08/03/18 10:49 08/03/18 10:49 08/03/18 13:59 08/03/18 10:49 - Medications Medications: Current Medications Acetaminophen (Tylenol 325mg Tab) 650 mg PO Q6 PRN PRN Reason: Pain, Mild (1-3) Last Admin: 08/01/18 16:05 Dose: 650 mg Apixaban (Eliquis) 5 mg PO Q12 [facility]; Protocol Last Admin: 08/03/18 09:12 Dose: 5 mg Aspirin (Ecotrin) 81 mg PO DAILY [facility] Last Admin: 08/03/18 09:13 Dose: 81 mg Atorvastatin Calcium (Lipitor) 10 mg PO HS [facility] Last Admin: 08/02/18 22:28 Dose: 10 mg Docusate Sodium (Colace) 100 mg PO BID [facility] Last Admin: 08/03/18 09:16 Dose: Not Given Furosemide (Lasix) 40 mg PO BID@0600,1400 [facility] Last Admin: 08/03/18 13:59 Dose: 40 mg Guaifenesin (Robitussin) 100 mg PO Q6 PRN PRN Reason: Cough Piperacillin Sod/Tazobactam (Sod 3.375 gm/ Sodium Chloride) 100 mls @ 100 mls/hr IVPB 0600,1200,1800,0000 [facility]; Protocol Last Admin: 08/03/18 12:17 Dose: 100 mls/hr Levalbuterol HCl (Xopenex) 0.63 mg INH RQ6 PRN PRN Reason: Shortness of Breath Levothyroxine Sodium (Synthroid) 225 mcg PO DAILY@0630 [facility] Last Admin: 08/03/18 06:34 Dose: 225 mcg Losartan Potassium (Cozaar) 25 mg PO DAILY [facility] Last Admin: 08/03/18 09:13 Dose: 25 mg Metoprolol Tartrate (Lopressor) 75 mg PO BID [facility] Last Admin: 08/03/18 09:14 Dose: 75 mg Oxycodone/Acetaminophen (Percocet 5/325 Mg Tab) 1 tab PO Q6 PRN PRN Reason: Pain, moderate (4-7) Stop: 08/04/18 22:13 Last Admin: 08/03/18 09:20 Dose: 1 tab Pantoprazole Sodium (Protonix Ec Tab) 40 mg PO DAILY [facility] Last Admin: 08/03/18 09:14 Dose: 40 mg Polyethylene Glycol (Miralax) 17 gm PO DAILY PRN PRN Reason: Constipation Potassium Chloride (Klor-Con 10) 10 meq PO DAILY [facility] Last Admin: 08/03/18 09:13 Dose: 10 meq - Labs Labs: 08/03/18 06:25 08/03/18 06:25 PT 16.1 Seconds (9.8-13.1) H 08/01/18 07:00 INR 1.4 08/01/18 07:00 - Constitutional Appears: Well - Head Exam Head Exam: ATRAUMATIC, NORMAL INSPECTION, NORMOCEPHALIC - Eye Exam Eye Exam: EOMI, Normal appearance, PERRL Pupil Exam: NORMAL ACCOMODATION, PERRL - ENT Exam ENT Exam: Mucous Membranes Moist, Normal Exam - Neck Exam Neck Exam: Full ROM, Normal Inspection. absent: Lymphadenopathy - Respiratory Exam Respiratory Exam: Clear to Ausculation Bilateral, NORMAL BREATHING PATTERN - Cardiovascular Exam Cardiovascular Exam: REGULAR RHYTHM, +S1, +S2. absent: Murmur - GI/Abdominal Exam GI & Abdominal Exam: Soft, Normal Bowel Sounds. absent: Tenderness - Extremities Exam Extremities Exam: Full ROM, Normal Capillary Refill, Normal Inspection. absent: Joint Swelling, Pedal Edema - Back Exam Back Exam: NORMAL INSPECTION - Neurological Exam Neurological Exam: Alert, Awake, CN II-XII Intact, Normal Gait, Oriented x3 - Psychiatric Exam Psychiatric exam: Normal Affect, Normal Mood - Skin Skin Exam: Dry, Intact, Normal Color, Warm Assessment and Plan (1) S/P MVR (mitral valve repair) Status: Acute (2) Atrial fibrillation with normal ventricular rate Status: Acute (3) Hypertension Status: Acute (4) Hypothyroidism Status: Acute (5) Morbid obesity Status: Deleted
[2018-08-04] MEDS: Piperacillin/Tazobact 3.375 GM in Sodium Chloride 0.9% 100 ML IVPB SCH ×4 (06:10→17:18)
[2018-08-04] MEDS: Levothyroxine 75 MCG TAB PO SCH (06:14)
[2018-08-04 06:30] LABS: BASO # 0.1 K/uL (0.0-0.2); BASO % 0.9 % (0.0-2.0); EOS # 0.1 K/uL (0.0-0.7); EOS % 1.3 % (0.0-4.0); HEMOGLOBIN 10.9 g/dL (12.0-16.0); LYMPH # 1.3 K/uL (1.0-4.3); LYMPH % 16.4 % (20.0-40.0); MEAN CELL VOLUME 86.3 fl (81.0-99.0); MEAN CORPUSCULAR HEMOGLOBIN 28.1 pg (27.0-31.0); MEAN CORPUSCULAR HGB CONC 32.6 g/dL (33.0-37.0); MEAN PLATELET VOLUME 8.7 fl (7.2-11.7); MONO # 0.6 K/uL (0.0-0.8); MONO % 7.6 % (0.0-10.0); NEUT # 5.9 K/uL (1.8-7.0); NEUT % 73.8 % (50.0-75.0); RBC 3.88 Mil/uL (3.80-5.20); RED CELL DISTRIBUTION WIDTH 15.9 % (11.5-14.5)
[2018-08-04 06:41] LABS: BLOOD UREA NITROGEN 13 mg/dl (7-17); CALCIUM 8.8 mg/dL (8.4-10.2); GFR NON-AFRICAN AMERICAN > 60
[2018-08-04] MEDS: Oxycodone/Acetaminophen 5/325 mg Tab PO PRN (09:29)
[2018-08-04] MEDS: Potassium Chloride 10 mEq ER Tab PO SCH (09:29)
[2018-08-04] MEDS: Pantoprazole 40 mg EC Tab PO SCH (09:30)
[2018-08-04] MEDS: Lactobacillus Acidophilus 500 MU Cap PO SCH ×2 (11:22→17:18)
--- NOTE | 2018-08-04 13:22 | CP.PCM.CON ---
History of Present Illness - History of Present Illness History of Present Illness: admitted with pneumonia MVR at [facility] 'started on IV rx for HCAP now has LBM r/o c diff PMH- rheumatic heart disease HTN Mitral stenosis hypertension hypothyroidism stable lung nodule on serial CAT scans former smoker 25 to 30 pack year history of smoking quit in 2000 chronic back pain secondary to herniated disc L3-L5 chronic knee pain arthritis known severe mitral regurgitation status post percutaneous mitral valvuloplasty Review of Systems - Constitutional Constitutional: As Per HPI - EENT Eyes: absent: As Per HPI, Blind Spots, Blurred Vision, Change in Vision, Decreased Night Vision, Diplopia, Discharge, Dry Eye, Exophthalmos, Floaters, Irritation, Itchy Eyes, Loss of Peripheral Vision, Pain, Photophobia, Requires Corrective Lenses, Sees Flashes, Spots in Vision, Tunnel Vision, Other Visual Disturbances, Loss of Vision, Other Ears: absent: As Per HPI, Decreased Hearing, Ear Discharge, Ear Pain, Tinnitus, Abnormal Hearing, Disequilibrium, Dizziness, Other Nose/Mouth/Throat: absent: As Per HPI, Epistaxis, Nasal Congestion, Nasal Discharge, Nasal Obstruction, Nasal Trauma, Nose Pain, Post Nasal Drip, Sinus Pain, Sinus Pressure, Bleeding Gums, Change in Voice, Dental Pain, Dry Mouth, Dysphagia, Halitosis, Hoarsness, Lip Swelling, Mouth Lesions, Mouth Pain, Odynophagia, Sore Throat, Throat Swelling, Tongue Swelling, Facial Pain, Neck Pain, Neck Mass, Other - Breasts Breasts: absent: As Per HPI, Change in Shape, Mass, Pain, Nipple Discharge, Nipple Inversion, Skin Changes, Swelling, Other - Cardiovascular Cardiovascular: As Per HPI - Respiratory Respiratory: As Per HPI - Reproductive: Female Reproductive:Female: absent: As Per HPI, Amenorrhea, Amenorrhea/ Control, Currently Menstual, Cycle <21 Days, Cycle >35 Days, Cycle Variable, Menses 1-7 Days, Menses >/= 8 Days, Menses Variable, Cycle > 4 Weeks Between, No Menses for 6 Months, Heavy Menses, Light Menses, Normal Menses, Spotting Between Cycles, S/P Hysterectomy, Menopausal, Post Menopausal, Premenarche, Abnormal Vaginal Bleeding, Dysmenorrhea, Dyspareunia, Genital Lesions, Genital Pruritis, Pelvic Pain, Prolapse Symptoms, Sexual Dysfunction, Vaginal Discharge, Vaginal Dryness, Vaginal Odor, Vaginal Pruritis, Other - Menstruation Menstruation: absent: As Per HPI, Amenorrhea, Amenorrhea/ Control, Currently Menstual, Cycle <21 Days, Cycle >35 Days, Cycle Variable, Menses 1-7 Days, Menses >/= 8 Days, Menses Variable, Cycle > 4 Weeks Between, No Menses for 6 Months, Heavy Menses, Light Menses, Normal Menses, Spotting Between Cycles, S/P Hysterectomy, Menopausal, Post Menopausal, Premenarche, Abnormal Vaginal Bleeding, Dysmenorrhea, Other - Musculoskeletal Musculoskeletal: absent: As Per HPI, Abnormal Gait, Arthralgias, Atrophy, Back Pain, Deformity, Joint Swelling, Limited Range of Motion, Loss of Height, Muscle Cramps, Muscle Weakness, Myalgias, Neck Pain, Numbness, Radiating Pain into Limb, Stiffness, Tingling, Other - Integumentary Integumentary: absent: As Per HPI, Acne, Alopecia, Bleeding Lesions, Change in Hair, Change in Nails, Change in Pigmentation, Changing Lesions, Dry Skin, Erythema, Furuncle, Hirsutism, Lesions, New Lesions, Non-Healing Lesions, Photosensitivity, Pruritus, Rash, Skin Pain, Skin Ulcer, Sores, Striae, Swelling, Unusual Bruising, Wounds, Jaundice, Other - Neurological Neurological: absent: As Per HPI, Abnormal Gait, Abnormal Hearing, Abnormal Movements, Abnormal Speech, Behavioral Changes, Burning Sensations, Confusion, Convulsions, Disequilibrium, Dizziness, Numbness, Focal Weakness, Frequent Falls, Headaches, Lack of Coordination, Loss of Vision, Memory Loss, Paresthesias, Radicular Pain, Restless Legs, Sensory Deficit, Syncope, Tingling, Tremor, Vertigo, Weakness, Other Visual Disturbances, Other - Psychiatric Psychiatric: absent: As Per HPI, Abnormal Sleep Pattern, Anhedonia, Anxiety, Auditory Hallucinations, Behavioral Changes, Change in Appetite, Change in Libido, Confusion, Depression, Difficulty Concentrating, Hallucinations, Homicidal Ideation, Hopelessness, Irritability, Memory Loss, Mood Swings, Panic Attacks, Paranoia, Suicidal Ideation, Visual Hallucinations, Tactile Hallucinations, Other - Endocrine Endocrine: absent: As Per HPI, Change in Body Appearance, Change in Libido, Cold Intolorance, Deepening of Voice, Excessive Sweating, Fatigue, Flushing, Heat Intolorance, Increase in Ring/Shoe/Hat Size, Palpitations, Polydipsia, Polyphagia, Polyuria, Other - Hematologic/Lymphatic Hematologic: absent: As Per HPI, Easy Bleeding, Easy Bruising, Lymphadenopathy, Other Past Patient History - Past Social History Smoking Status: Former Smoker Alcohol: None Drugs: Denies Home Situation {Lives}: Alone - CARDIAC Hx Cardiac Disorders: Yes Hx Atrial Fibrillation: Yes Hx Hypertension: Yes Hx Mitral Valve Prolapse: Yes - PULMONARY Hx Respiratory Disorders: Yes Hx Pneumonia: Yes - NEUROLOGICAL Hx Neurological Disorder: No - RENAL Hx Chronic Kidney Disease: No - ENDOCRINE/METABOLIC Other/Comment: Morbid Obesity BMI 49.1 - HEMATOLOGICAL/ONCOLOGICAL Hx Blood Disorders: No Hx AIDS: No Hx Human Immunodeficiency Virus (HIV): No - INTEGUMENTARY Hx Dermatological Problems: No - MUSCULOSKELETAL/RHEUMATOLOGICAL Hx Musculoskeletal Disorders: Yes Hx Arthritis: Yes Hx Back Pain: Yes Hx Falls: No Hx Herniated Disk: Yes - GASTROINTESTINAL Hx Gastrointestinal Disorders: No - GENITOURINARY/GYNECOLOGICAL Hx Genitourinary Disorders: No - PSYCHIATRIC Hx Psychophysiologic Disorder: No Hx Substance Use: No - SURGICAL HISTORY Hx Surgeries: Yes Other/Comment: Precutaneous Mitral Valvuloplastic 2000. MVR 07/09/2018. - ANESTHESIA Hx Anesthesia: Yes Hx Anesthesia Reactions: No Meds Allergies/Adverse Reactions: Allergies Allergy/AdvReac Type Severity Reaction Status Date / Time naproxen Allergy RASH Verified 07/23/18 17:48 - Medications Medications: Current Medications Acetaminophen (Tylenol 325mg Tab) 650 mg PO Q6 PRN PRN Reason: Pain, Mild (1-3) Last Admin: 08/01/18 16:05 Dose: 650 mg Apixaban (Eliquis) 5 mg PO Q12 [facility]; Protocol Last Admin: 08/04/18 09:29 Dose: 5 mg Aspirin (Ecotrin) 81 mg PO DAILY [facility] Last Admin: 08/04/18 09:31 Dose: 81 mg Atorvastatin Calcium (Lipitor) 10 mg PO HS [facility] Last Admin: 08/03/18 21:43 Dose: 10 mg Docusate Sodium (Colace) 100 mg PO BID [facility] Last Admin: 08/04/18 09:30 Dose: 100 mg Furosemide (Lasix) 40 mg PO BID@0600,1400 [facility] Last Admin: 08/03/18 13:59 Dose: 40 mg Guaifenesin (Robitussin) 100 mg PO Q6 PRN PRN Reason: Cough Piperacillin Sod/Tazobactam (Sod 3.375 gm/ Sodium Chloride) 100 mls @ 100 mls/hr IVPB 0600,1200,1800,0000 [facility]; Protocol Last Admin: 08/04/18 06:10 Dose: 100 mls/hr Lactobacillus Acidophilus (Bacid Acidophilus) 1 cap PO BID [facility] Levalbuterol HCl (Xopenex) 0.63 mg INH RQ6 PRN PRN Reason: Shortness of Breath Levothyroxine Sodium (Synthroid) 225 mcg PO DAILY@0630 [facility] Last Admin: 08/04/18 06:14 Dose: 225 mcg Losartan Potassium (Cozaar) 25 mg PO DAILY [facility] Last Admin: 08/04/18 09:31 Dose: 25 mg Metoprolol Tartrate (Lopressor) 50 mg PO BID [facility] Last Admin: 08/04/18 09:29 Dose: 50 mg Oxycodone/Acetaminophen (Percocet 5/325 Mg Tab) 1 tab PO Q6 PRN PRN Reason: Pain, moderate (4-7) Stop: 08/04/18 22:13 Last Admin: 08/04/18 09:29 Dose: 1 tab Pantoprazole Sodium (Protonix Ec Tab) 40 mg PO DAILY [facility] Last Admin: 08/04/18 09:30 Dose: 40 mg Polyethylene Glycol (Miralax) 17 gm PO DAILY PRN PRN Reason: Constipation Last Admin: 08/04/18 09:29 Dose: 17 gm Potassium Chloride (Klor-Con 10) 10 meq PO DAILY [facility] Last Admin: 08/04/18 09:29 Dose: 10 meq Physical Exam - Constitutional Appears: Non-toxic - Head Exam Head Exam: ATRAUMATIC, NORMAL INSPECTION, NORMOCEPHALIC - Eye Exam Eye Exam: EOMI, Normal appearance, PERRL Pupil Exam: NORMAL ACCOMODATION, PERRL - ENT Exam ENT Exam: Mucous Membranes Moist, Normal Exam - Neck Exam Neck exam: Positive for: Normal Inspection - Respiratory Exam Respiratory Exam: Decreased Breath Sounds, Prolonged Expiratory Phase, Rhonchi - Cardiovascular Exam Cardiovascular Exam: REGULAR RHYTHM, +S1, +S2, Systolic Murmur - GI/Abdominal Exam GI & Abdominal Exam: Diminished Bowel Sounds, Distended, Hyperactive Bowel Sounds, Soft. absent: Tenderness - Rectal Exam Rectal Exam: Deferred - Exam Exam: NORMAL INSPECTION - Extremities Exam Extremities exam: Positive for: normal inspection - Back Exam Back exam: NORMAL INSPECTION - Neurological Exam Neurological exam: Alert, CN II-XII Intact, Normal Gait, Oriented x3, Reflexes Normal - Psychiatric Exam Psychiatric exam: Normal Affect, Normal Mood - Skin Skin Exam: Dry, Intact, Normal Color, Warm Results - Vital Signs Recent Vital Signs: Last Vital Signs Temp 98.0 F 08/04/18 08:22 Pulse 81 08/04/18 10:32 Resp 18 08/04/18 08:22 BP 108/74 08/04/18 10:32 Pulse Ox 96 08/04/18 10:32 - Labs Result Diagrams: 08/04/18 06:20 08/04/18 06:20 Labs: Laboratory Results - last 24 hr 08/04/18 08/04/18 06:20 06:20 WBC 8.0 RBC 3.88 Hgb 10.9 L Hct 33.5 L MCV 86.3 MCH 28.1 MCHC 32.6 L RDW 15.9 H Plt Count 267 MPV 8.7 Neut % (Auto) 73.8 Lymph % (Auto) 16.4 L [place] % (Auto) 7.6 Eos % (Auto) 1.3 Baso % (Auto) 0.9 Neut # (Auto) 5.9 Lymph # (Auto) 1.3 [place] # (Auto) 0.6 Eos # (Auto) 0.1 Baso # (Auto) 0.1 Sodium 133 Potassium 3.6 Chloride 92 L Carbon Dioxide 34 H Anion Gap 11 BUN 13 Creatinine 0.7 Est GFR ( Amer) > 60 Est GFR (Non-Af Amer) > 60 Random Glucose 104 Calcium 8.8 Assessment & Plan (1) Atrial fibrillation with normal ventricular rate Status: Acute (2) Hospital acquired PNA Status: Acute Priority: High (3) Hypertension Status: Acute (4) Hypothyroidism Status: Acute (5) Hypoxemia Status: Acute Priority: High (6) S/P MVR (mitral valve repair) Status: Acute Priority: High (7) COPD (chronic obstructive pulmonary disease) Status: Chronic Priority: Medium (8) Morbid obesity with BMI of 45.0-49.9, adult Status: Chronic Priority: High - Assessment and Plan (Free Text) Assessment: check c diff add Vanco PO cont rx pneumonia x 7 days
--- NOTE | 2018-08-04 16:01 | CP.PCM.PN ---
Subjective - Date & Time of Evaluation Date of Evaluation: 08/04/18 Time of Evaluation: 07:00 - Subjective Subjective: Patient seen and examined this morning with Dr. Mirza. NAD, S/p PICC Line for IV Abx (pneumonia), denies any acute event overnight. Denies any chest pain, SOB, abdominal pain or dizziness. Continues with PT, using NC at rest. + diarrhea, F/u C.diff, Start Probiotics Objective - Vital Signs/Intake and Output Vital Signs (last 24 hours): Temp Pulse Resp BP Pulse Ox 98.1 F 66 20 108/75 99 08/04/18 15:53 08/04/18 15:53 08/04/18 15:53 08/04/18 15:53 08/04/18 15:53 - Medications Medications: Current Medications Acetaminophen (Tylenol 325mg Tab) 650 mg PO Q6 PRN PRN Reason: Pain, Mild (1-3) Last Admin: 08/01/18 16:05 Dose: 650 mg Apixaban (Eliquis) 5 mg PO Q12 [facility]; Protocol Last Admin: 08/04/18 09:29 Dose: 5 mg Aspirin (Ecotrin) 81 mg PO DAILY [facility] Last Admin: 08/04/18 09:31 Dose: 81 mg Atorvastatin Calcium (Lipitor) 10 mg PO HS [facility] Last Admin: 08/03/18 21:43 Dose: 10 mg Docusate Sodium (Colace) 100 mg PO BID [facility] Last Admin: 08/04/18 09:30 Dose: 100 mg Furosemide (Lasix) 40 mg PO BID@0600,1400 [facility] Last Admin: 08/03/18 13:59 Dose: 40 mg Guaifenesin (Robitussin) 100 mg PO Q6 PRN PRN Reason: Cough Piperacillin Sod/Tazobactam (Sod 3.375 gm/ Sodium Chloride) 100 mls @ 100 mls/hr IVPB 0600,1200,1800,0000 [facility]; Protocol Last Admin: 08/04/18 13:22 Dose: 100 mls/hr Lactobacillus Acidophilus (Bacid Acidophilus) 1 cap PO BID [facility] Last Admin: 08/04/18 11:22 Dose: 1 cap Levalbuterol HCl (Xopenex) 0.63 mg INH RQ6 PRN PRN Reason: Shortness of Breath Levothyroxine Sodium (Synthroid) 225 mcg PO DAILY@0630 [facility] Last Admin: 08/04/18 06:14 Dose: 225 mcg Losartan Potassium (Cozaar) 25 mg PO DAILY [facility] Last Admin: 08/04/18 09:31 Dose: 25 mg Metoprolol Tartrate (Lopressor) 50 mg PO BID [facility] Last Admin: 08/04/18 09:29 Dose: 50 mg Oxycodone/Acetaminophen (Percocet 5/325 Mg Tab) 1 tab PO Q6 PRN PRN Reason: Pain, moderate (4-7) Stop: 08/04/18 22:13 Last Admin: 08/04/18 09:29 Dose: 1 tab Pantoprazole Sodium (Protonix Ec Tab) 40 mg PO DAILY [facility] Last Admin: 08/04/18 09:30 Dose: 40 mg Polyethylene Glycol (Miralax) 17 gm PO DAILY PRN PRN Reason: Constipation Last Admin: 08/04/18 09:29 Dose: 17 gm Potassium Chloride (Klor-Con 10) 10 meq PO DAILY [facility] Last Admin: 08/04/18 09:29 Dose: 10 meq - Labs Labs: 08/04/18 06:20 08/04/18 06:20 PT 16.1 Seconds (9.8-13.1) H 08/01/18 07:00 INR 1.4 08/01/18 07:00 - Constitutional Appears: No Acute Distress - Head Exam Head Exam: NORMAL INSPECTION - Eye Exam Eye Exam: EOMI, Normal appearance Pupil Exam: NORMAL ACCOMODATION - ENT Exam ENT Exam: Mucous Membranes Moist - Neck Exam Neck Exam: Normal Inspection - Respiratory Exam Respiratory Exam: Decreased Breath Sounds, NORMAL BREATHING PATTERN - Cardiovascular Exam Cardiovascular Exam: Irregular Rhythm, +S1, +S2 Additional comments: s/p MV replacement, surgical scar examined, nontender, no erythema or discharge noted - GI/Abdominal Exam GI & Abdominal Exam: Soft. absent: Tenderness - Extremities Exam Extremities Exam: Pedal Edema, Tenderness - Back Exam Back Exam: NORMAL INSPECTION. absent: CVA tenderness (L), CVA tenderness (R) - Neurological Exam Neurological Exam: Alert, Awake, Oriented x3 - Psychiatric Exam Psychiatric exam: Normal Affect Assessment and Plan - Assessment and Plan (Free Text) Assessment: A/P: 47 y/o F with a PMHx of hypothyrodisim, HTN, morbid obesity, rheumatic mitral valve disease and AFib, S/P Mitral pattern molder replacement and cardiac ablation >1 week ago and complicated by pneumonia, was admitted for rehabilitation and antibiotic therapy. --HCAP: Pulmonary consult appreciated, S/p PICC line, C/w Zosyn and NC (Hypoxemia) --Consult ID, f/u recommendations --Cardiology on board, Dr Villalobos, recommendations appreciated --Recovering well from surgery, s/p open MV replacement, c/w ASA/Eliquis/Lipitor/Lasix/Losartan/Metoprolol --Valvular A.fib: C/w ASA and Eliquis (No warfarin, eliquis with good results as per cardio) --Lower extremities swelling and pain: Improved s/p Lasix (Held for low BP) --Intermittent left arm weakness/numbness: Possibly due to surgery/inactivity, CT head 07/29: no new changes, + old infract --Diarrhea: F/u C.diff, START pro-biotics --C/w Levothyroxine --Echocardio with 50-55% EF --Continue with physical therapy --Continue plan as ordered --DVT PPX: Eliquis Case discussed and Patient seen with Dr. Mirza.
[2018-08-04] MEDS: Vancomycin 500 mg (Oral/Rectal USE) PO SCH (21:51)
[2018-08-05] MEDS: Cefepime 1 GM in Sodium Chloride 0.9% 100 ML IVPB SCH ×3 (00:02→16:22)
[2018-08-05] MEDS: Levothyroxine 75 MCG TAB PO SCH (06:31)
[2018-08-05] MEDS: Oxycodone/Acetaminophen 5/325 mg Tab PO PRN ×2 (06:47→21:29)
--- NOTE | 2018-08-05 08:25 | CP.PCM.PN ---
Subjective - Date & Time of Evaluation Date of Evaluation: 08/05/18 Time of Evaluation: 07:00 - Subjective Subjective: Patient seen and examined this morning with Dr. Mirza. VS stable. No acute event reported overnight. NAD C.diff + started on Vanco PO snf probiotics C/w HCAP treatment Patient reports feeling tired Improved LEs edema/swelling Denies any pain or SOB, + NC use Encourage PT Objective - Vital Signs/Intake and Output Vital Signs (last 24 hours): Temp Pulse Resp BP Pulse Ox 98.4 F 85 18 133/84 97 08/05/18 08:01 08/05/18 08:01 08/05/18 08:01 08/05/18 08:01 08/05/18 08:01 - Medications Medications: Current Medications Acetaminophen (Tylenol 325mg Tab) 650 mg PO Q6 PRN PRN Reason: Pain, Mild (1-3) Last Admin: 08/01/18 16:05 Dose: 650 mg Apixaban (Eliquis) 5 mg PO Q12 [facility]; Protocol Last Admin: 08/04/18 21:51 Dose: 5 mg Aspirin (Ecotrin) 81 mg PO DAILY [facility] Last Admin: 08/04/18 09:31 Dose: 81 mg Atorvastatin Calcium (Lipitor) 10 mg PO HS [facility] Last Admin: 08/04/18 21:51 Dose: 10 mg Docusate Sodium (Colace) 100 mg PO BID [facility] Last Admin: 08/04/18 17:05 Dose: Not Given Furosemide (Lasix) 40 mg PO BID@0600,1400 [facility] Last Admin: 08/03/18 13:59 Dose: 40 mg Guaifenesin (Robitussin) 100 mg PO Q6 PRN PRN Reason: Cough Cefepime HCl 1 gm/ Sodium (Chloride) 100 mls @ 100 mls/hr IVPB Q8 [facility]; Protocol Last Admin: 08/05/18 00:02 Dose: 100 mls/hr Lactobacillus Acidophilus (Bacid Acidophilus) 1 cap PO BID [facility] Last Admin: 08/04/18 17:18 Dose: 1 cap Levalbuterol HCl (Xopenex) 0.63 mg INH RQ6 PRN PRN Reason: Shortness of Breath Levothyroxine Sodium (Synthroid) 225 mcg PO DAILY@0630 [facility] Last Admin: 08/05/18 06:31 Dose: 225 mcg Losartan Potassium (Cozaar) 25 mg PO DAILY [facility] Last Admin: 08/04/18 09:31 Dose: 25 mg Metoprolol Tartrate (Lopressor) 50 mg PO BID [facility] Last Admin: 08/04/18 17:18 Dose: 50 mg Oxycodone/Acetaminophen (Percocet 5/325 Mg Tab) 1 tab PO Q6 PRN PRN Reason: Pain, moderate (4-7) Stop: 08/08/18 06:33 Last Admin: 08/05/18 06:47 Dose: 1 tab Pantoprazole Sodium (Protonix Ec Tab) 40 mg PO DAILY [facility] Last Admin: 08/04/18 09:30 Dose: 40 mg Polyethylene Glycol (Miralax) 17 gm PO DAILY PRN PRN Reason: Constipation Last Admin: 08/04/18 09:29 Dose: 17 gm Potassium Chloride (Klor-Con 10) 10 meq PO DAILY [facility] Last Admin: 08/04/18 09:29 Dose: 10 meq Vancomycin HCl (Vancocin (Oral/Rectal Use)) 250 mg PO QID [facility]; Protocol Last Admin: 08/04/18 21:51 Dose: 250 mg - Labs Labs: 08/04/18 06:20 08/04/18 06:20 PT 16.1 Seconds (9.8-13.1) H 08/01/18 07:00 INR 1.4 08/01/18 07:00 - Constitutional Appears: No Acute Distress - Head Exam Head Exam: NORMAL INSPECTION - Eye Exam Eye Exam: Normal appearance - ENT Exam ENT Exam: Mucous Membranes Moist - Respiratory Exam Respiratory Exam: Decreased Breath Sounds, Clear to Ausculation Bilateral, NORMAL BREATHING PATTERN - Cardiovascular Exam Cardiovascular Exam: Irregular Rhythm, +S1, +S2 - GI/Abdominal Exam GI & Abdominal Exam: Soft, Normal Bowel Sounds. absent: Tenderness - Back Exam Back Exam: NORMAL INSPECTION - Neurological Exam Neurological Exam: Alert, Awake, Oriented x3 Neuro motor strength exam: Left Upper Extremity: 4, Right Upper Extremity: 4, Left Lower Extremity: 4, Right Lower Extremity: 4 - Psychiatric Exam Psychiatric exam: Normal Affect - Skin Skin Exam: Normal Color Assessment and Plan - Assessment and Plan (Free Text) Assessment: A/P: 47 y/o F with a PMHx of hypothyrodisim, HTN, morbid obesity, rheumatic mitral valve disease and AFib, S/P Mitral clinical cytogeneticist replacement and cardiac ablation >1 week ago and complicated by pneumonia, was admitted for rehabilitation and antibiotic therapy. --HCAP: Pulmonary and ID consult appreciated, S/p PICC line, Cefepime IV day 1 (d/c on ) --Cardiology on board, Dr Villalobos, recommendations appreciated --Recovering well from surgery, s/p open MV replacement, c/w ASA/Eliquis/Lipitor/Losartan/Metoprolol, HOLD lasix --Valvular A.fib: C/w ASA and Eliquis (No warfarin, eliquis with good results as per cardio) --Lower extremities swelling and pain: Improved s/p Lasix (Held for low BP) --Intermittent left arm weakness/numbness: Possibly due to surgery/inactivity, CT head 07/29: no new changes, + old infract --Diarrhea: + C.diff, START pro-biotics and Vanco day 1 --C/w Levothyroxine --Echocardio with 50-55% EF --C/w PT and plan as ordered --DVT PPX: Eliquis Case discussed and Patient seen with Dr. Mirza.
[2018-08-05] MEDS: Lactobacillus Acidophilus 500 MU Cap PO SCH ×2 (09:11→16:31)
[2018-08-05] MEDS: Pantoprazole 40 mg EC Tab PO SCH (09:11)
[2018-08-05] MEDS: Potassium Chloride 10 mEq ER Tab PO SCH (09:12)
[2018-08-05] MEDS: Vancomycin 500 mg (Oral/Rectal USE) PO SCH ×4 (09:13→21:23)
--- NOTE | 2018-08-05 15:59 | CP.PCM.PN ---
Subjective - Date & Time of Evaluation Date of Evaluation: 08/05/18 Time of Evaluation: 12:30 - Subjective Subjective: F/U Pulmonary consult. No SOB with O2, no chest wall pain, minimal in L shoulder and L scapular area Objective - Vital Signs/Intake and Output Vital Signs (last 24 hours): Temp Pulse Resp BP Pulse Ox 98.3 F 81 20 109/73 99 08/05/18 15:41 08/05/18 15:41 08/05/18 15:41 08/05/18 15:41 08/05/18 15:41 - Medications Medications: Current Medications Acetaminophen (Tylenol 325mg Tab) 650 mg PO Q6 PRN PRN Reason: Pain, Mild (1-3) Last Admin: 08/01/18 16:05 Dose: 650 mg Apixaban (Eliquis) [address] [facility]; Protocol Last Admin: 08/05/18 09:11 Dose: 5 mg Aspirin (Ecotrin) [address] [facility] Last Admin: 08/05/18 09:12 Dose: 81 mg Atorvastatin Calcium (Lipitor) [address] [facility] Last Admin: 08/04/18 21:51 Dose: 10 mg Docusate Sodium (Colace) [address] [facility] Last Admin: 08/05/18 09:13 Dose: Not Given Furosemide (Lasix) 40 mg PO BID@0600,1400 [facility] Last Admin: 08/03/18 13:59 Dose: 40 mg Guaifenesin (Robitussin) 100 mg PO Q6 PRN PRN Reason: Cough Cefepime HCl 1 gm/ Sodium (Chloride) 100 mls @ 100 mls/hr IVPB Q8 [facility]; Protocol Last Admin: 08/05/18 09:15 Dose: 100 mls/hr Lactobacillus Acidophilus (Bacid Acidophilus) [address] [facility] Last Admin: 08/05/18 09:11 Dose: 1 cap Levalbuterol HCl (Xopenex) 0.63 mg INH RQ6 PRN PRN Reason: Shortness of Breath Levothyroxine Sodium (Synthroid) 225 mcg PO DAILY@0630 [facility] Last Admin: 08/05/18 06:31 Dose: 225 mcg Losartan Potassium (Cozaar) [address] [facility] Last Admin: 08/05/18 09:12 Dose: 25 mg Metoprolol Tartrate (Lopressor) [address] [facility] Last Admin: 08/05/18 09:10 Dose: 50 mg Oxycodone/Acetaminophen (Percocet 5/325 Mg Tab) 1 tab PO Q6 PRN PRN Reason: Pain, moderate (4-7) Stop: 08/08/18 06:33 Last Admin: 08/05/18 06:47 Dose: 1 tab Pantoprazole Sodium (Protonix Ec Tab) [address] [facility] Last Admin: 08/05/18 09:11 Dose: 40 mg Polyethylene Glycol (Miralax) 17 gm PO DAILY PRN PRN Reason: Constipation Last Admin: 08/04/18 09:29 Dose: 17 gm Potassium Chloride (Klor-Con 10) [address] [facility] Last Admin: 08/05/18 09:12 Dose: 10 meq Vancomycin HCl (Vancocin (Oral/Rectal Use)) [address] [facility]; Protocol Last Admin: 08/05/18 13:19 Dose: 250 mg - Labs Labs: 08/04/18 06:20 08/04/18 06:20 PT 16.1 Seconds (9.8-13.1) H 08/01/18 07:00 INR 1.4 08/01/18 07:00 - Constitutional Appears: No Acute Distress - Head Exam Head Exam: NORMAL INSPECTION - Eye Exam Eye Exam: PERRL - ENT Exam ENT Exam: Normal Exam - Neck Exam Neck Exam: Normal Inspection - Respiratory Exam Respiratory Exam: Decreased Breath Sounds (at bases) Additional comments: Minimal tenderness anteror chest wall and L scapular. - Cardiovascular Exam Cardiovascular Exam: Irregular Rhythm, Murmur (systolic) Additional comments: Midsternal surgical incision healing well - GI/Abdominal Exam GI & Abdominal Exam: Soft, Normal Bowel Sounds - Extremities Exam Extremities Exam: Pedal Edema Additional comments: R arm midline - Back Exam Back Exam: NORMAL INSPECTION - Neurological Exam Neurological Exam: Alert, Oriented x3, Reflexes Normal - Psychiatric Exam Psychiatric exam: Normal Mood - Skin Skin Exam: Warm Assessment and Plan (1) Hospital acquired PNA Assessment & Plan: Sputum C-S Klebsiella Status: Acute (2) Hypoxemia Status: Acute (3) COPD (chronic obstructive pulmonary disease) Status: Chronic (4) S/P MVR (mitral valve repair) Status: Acute (5) Morbid obesity with BMI of 45.0-49.9, adult Status: Chronic - Assessment and Plan (Free Text) Plan: Continue O2 NC, Cefepime iv, Vanco po for C Diff, continue Physical Therapy with O2.
--- NOTE | 2018-08-05 16:54 | CP.PCM.PN ---
Subjective - Date & Time of Evaluation Date of Evaluation: 08/05/18 Time of Evaluation: 16:53 - Subjective Subjective: lasix held LE edema resolved C.Diff +Ve ( in isolation ) bb cut in half Objective - Vital Signs/Intake and Output Vital Signs (last 24 hours): Temp Pulse Resp BP Pulse Ox 98.3 F 80 20 109/73 99 08/05/18 15:41 08/05/18 16:23 08/05/18 15:41 08/05/18 16:23 08/05/18 15:41 - Medications Medications: Current Medications Acetaminophen (Tylenol 325mg Tab) 650 mg PO Q6 PRN PRN Reason: Pain, Mild (1-3) Last Admin: 08/01/18 16:05 Dose: 650 mg Apixaban (Eliquis) 5 mg PO Q12 [facility]; Protocol Last Admin: 08/05/18 09:11 Dose: 5 mg Aspirin (Ecotrin) 81 mg PO DAILY [facility] Last Admin: 08/05/18 09:12 Dose: 81 mg Atorvastatin Calcium (Lipitor) 10 mg PO HS [facility] Last Admin: 08/04/18 21:51 Dose: 10 mg Docusate Sodium (Colace) 100 mg PO BID [facility] Last Admin: 08/05/18 16:24 Dose: Not Given Furosemide (Lasix) 40 mg PO BID@0600,1400 [facility] Last Admin: 08/03/18 13:59 Dose: 40 mg Guaifenesin (Robitussin) 100 mg PO Q6 PRN PRN Reason: Cough Cefepime HCl 1 gm/ Sodium (Chloride) 100 mls @ 100 mls/hr IVPB Q8 [facility]; Protocol Last Admin: 08/05/18 16:22 Dose: 100 mls/hr Lactobacillus Acidophilus (Bacid Acidophilus) 1 cap PO BID [facility] Last Admin: 08/05/18 16:31 Dose: 1 cap Levalbuterol HCl (Xopenex) 0.63 mg INH RQ6 PRN PRN Reason: Shortness of Breath Levothyroxine Sodium (Synthroid) 225 mcg PO DAILY@0630 [facility] Last Admin: 08/05/18 06:31 Dose: 225 mcg Losartan Potassium (Cozaar) 25 mg PO DAILY [facility] Last Admin: 08/05/18 09:12 Dose: 25 mg Metoprolol Tartrate (Lopressor) 50 mg PO BID [facility] Last Admin: 08/05/18 16:23 Dose: 50 mg Oxycodone/Acetaminophen (Percocet 5/325 Mg Tab) 1 tab PO Q6 PRN PRN Reason: Pain, moderate (4-7) Stop: 08/08/18 06:33 Last Admin: 08/05/18 06:47 Dose: 1 tab Pantoprazole Sodium (Protonix Ec Tab) 40 mg PO DAILY [facility] Last Admin: 08/05/18 09:11 Dose: 40 mg Polyethylene Glycol (Miralax) 17 gm PO DAILY PRN PRN Reason: Constipation Last Admin: 08/04/18 09:29 Dose: 17 gm Potassium Chloride (Klor-Con 10) 10 meq PO DAILY [facility] Last Admin: 08/05/18 09:12 Dose: 10 meq Vancomycin HCl (Vancocin (Oral/Rectal Use)) 250 mg PO QID [facility]; Protocol Last Admin: 08/05/18 16:25 Dose: 250 mg - Labs Labs: 08/04/18 06:20 08/04/18 06:20 PT 16.1 Seconds (9.8-13.1) H 08/01/18 07:00 INR 1.4 08/01/18 07:00 - Constitutional Appears: Well - Head Exam Head Exam: ATRAUMATIC, NORMAL INSPECTION, NORMOCEPHALIC - Eye Exam Eye Exam: EOMI, Normal appearance, PERRL Pupil Exam: NORMAL ACCOMODATION, PERRL - ENT Exam ENT Exam: Mucous Membranes Moist, Normal Exam - Neck Exam Neck Exam: Full ROM, Normal Inspection. absent: Lymphadenopathy - Respiratory Exam Respiratory Exam: Clear to Ausculation Bilateral, NORMAL BREATHING PATTERN - Cardiovascular Exam Cardiovascular Exam: REGULAR RHYTHM, +S1, +S2, Murmur - GI/Abdominal Exam GI & Abdominal Exam: Soft, Normal Bowel Sounds. absent: Tenderness - Extremities Exam Extremities Exam: Full ROM, Normal Capillary Refill, Normal Inspection. absent: Joint Swelling, Pedal Edema - Back Exam Back Exam: NORMAL INSPECTION - Neurological Exam Neurological Exam: Alert, Awake, CN II-XII Intact, Normal Gait, Oriented x3 - Psychiatric Exam Psychiatric exam: Normal Affect, Normal Mood - Skin Skin Exam: Dry, Intact, Normal Color, Warm Assessment and Plan (1) S/P MVR (mitral valve repair) Status: Acute (2) Atrial fibrillation with normal ventricular rate Status: Acute (3) Hypertension Status: Acute (4) Hypothyroidism Status: Acute (5) Morbid obesity Status: Deleted
--- NOTE | 2018-08-05 17:13 | CP.PCM.PN ---
Subjective - Date & Time of Evaluation Date of Evaluation: 08/05/18 Time of Evaluation: 07:00 - Subjective Subjective: less diarrhea no fever denies chest pain or cough Objective - Vital Signs/Intake and Output Vital Signs (last 24 hours): Temp Pulse Resp BP Pulse Ox 98.3 F 80 20 109/73 99 08/05/18 15:41 08/05/18 16:23 08/05/18 15:41 08/05/18 16:23 08/05/18 15:41 - Medications Medications: Current Medications Acetaminophen (Tylenol 325mg Tab) 650 mg PO Q6 PRN PRN Reason: Pain, Mild (1-3) Last Admin: 08/01/18 16:05 Dose: 650 mg Apixaban (Eliquis) 5 mg PO Q12 [facility]; Protocol Last Admin: 08/05/18 09:11 Dose: 5 mg Aspirin (Ecotrin) 81 mg PO DAILY [facility] Last Admin: 08/05/18 09:12 Dose: 81 mg Atorvastatin Calcium (Lipitor) 10 mg PO HS [facility] Last Admin: 08/04/18 21:51 Dose: 10 mg Docusate Sodium (Colace) 100 mg PO BID [facility] Last Admin: 08/05/18 16:24 Dose: Not Given Furosemide (Lasix) 40 mg PO BID@0600,1400 [facility] Last Admin: 08/03/18 13:59 Dose: 40 mg Guaifenesin (Robitussin) 100 mg PO Q6 PRN PRN Reason: Cough Cefepime HCl 1 gm/ Sodium (Chloride) 100 mls @ 100 mls/hr IVPB Q8 [facility]; Protocol Last Admin: 08/05/18 16:22 Dose: 100 mls/hr Lactobacillus Acidophilus (Bacid Acidophilus) 1 cap PO BID [facility] Last Admin: 08/05/18 16:31 Dose: 1 cap Levalbuterol HCl (Xopenex) 0.63 mg INH RQ6 PRN PRN Reason: Shortness of Breath Levothyroxine Sodium (Synthroid) 225 mcg PO DAILY@0630 [facility] Last Admin: 08/05/18 06:31 Dose: 225 mcg Losartan Potassium (Cozaar) 25 mg PO DAILY [facility] Last Admin: 08/05/18 09:12 Dose: 25 mg Metoprolol Tartrate (Lopressor) 50 mg PO BID [facility] Last Admin: 08/05/18 16:23 Dose: 50 mg Oxycodone/Acetaminophen (Percocet 5/325 Mg Tab) 1 tab PO Q6 PRN PRN Reason: Pain, moderate (4-7) Stop: 08/08/18 06:33 Last Admin: 08/05/18 06:47 Dose: 1 tab Pantoprazole Sodium (Protonix Ec Tab) 40 mg PO DAILY [facility] Last Admin: 08/05/18 09:11 Dose: 40 mg Polyethylene Glycol (Miralax) 17 gm PO DAILY PRN PRN Reason: Constipation Last Admin: 08/04/18 09:29 Dose: 17 gm Potassium Chloride (Klor-Con 10) 10 meq PO DAILY [facility] Last Admin: 08/05/18 09:12 Dose: 10 meq Vancomycin HCl (Vancocin (Oral/Rectal Use)) 250 mg PO QID [facility]; Protocol Last Admin: 08/05/18 16:25 Dose: 250 mg - Labs Labs: 08/04/18 06:20 08/04/18 06:20 PT 16.1 Seconds (9.8-13.1) H 08/01/18 07:00 INR 1.4 08/01/18 07:00 - Constitutional Appears: Non-toxic, No Acute Distress, Chronically Ill - Head Exam Head Exam: ATRAUMATIC, NORMAL INSPECTION, NORMOCEPHALIC - Eye Exam Eye Exam: EOMI, Normal appearance, PERRL Pupil Exam: NORMAL ACCOMODATION, PERRL - ENT Exam ENT Exam: Mucous Membranes Moist, Normal Exam - Neck Exam Neck Exam: Full ROM, Normal Inspection. absent: Lymphadenopathy - Respiratory Exam Respiratory Exam: Clear to Ausculation Bilateral, NORMAL BREATHING PATTERN - Cardiovascular Exam Cardiovascular Exam: REGULAR RHYTHM, +S1, +S2. absent: Murmur - GI/Abdominal Exam GI & Abdominal Exam: Soft, Normal Bowel Sounds. absent: Tenderness - Rectal Exam Rectal Exam: Deferred - Extremities Exam Extremities Exam: Full ROM, Normal Capillary Refill, Pedal Edema. absent: Joint Swelling, Tenderness - Back Exam Back Exam: NORMAL INSPECTION - Neurological Exam Neurological Exam: Alert, Awake, CN II-XII Intact, Normal Gait, Oriented x3 - Psychiatric Exam Psychiatric exam: Normal Affect, Normal Mood - Skin Skin Exam: Dry, Intact, Normal Color, Warm Assessment and Plan (1) Atrial fibrillation with normal ventricular rate Status: Acute (2) Hospital acquired PNA Status: Acute (3) Hypertension Status: Acute (4) Hypothyroidism Status: Acute (5) Hypoxemia Status: Acute (6) S/P MVR (mitral valve repair) Status: Acute (7) COPD (chronic obstructive pulmonary disease) Status: Chronic (8) Morbid obesity with BMI of 45.0-49.9, adult Status: Chronic - Assessment and Plan (Free Text) Assessment: cont PO and IV rx d/c IV antibiotics once cleared by Dr Gracia cont Vanco PO for min 10 days
[2018-08-06] MEDS: Cefepime 1 GM in Sodium Chloride 0.9% 100 ML IVPB SCH ×3 (01:15→16:21)
[2018-08-06] MEDS: Levothyroxine 75 MCG TAB PO SCH (05:47)
[2018-08-06] MEDS: Lactobacillus Acidophilus 500 MU Cap PO SCH ×2 (08:50→16:25)
[2018-08-06] MEDS: Vancomycin 500 mg (Oral/Rectal USE) PO SCH ×4 (08:50→21:05)
[2018-08-06] MEDS: Potassium Chloride 10 mEq ER Tab PO SCH (08:51)
[2018-08-06] MEDS: Pantoprazole 40 mg EC Tab PO SCH (08:53)
--- NOTE | 2018-08-06 13:23 | CP.PCM.PN ---
Subjective - Date & Time of Evaluation Date of Evaluation: 08/06/18 Time of Evaluation: 08:00 - Subjective Subjective: less diarrhea no fever denies cough chest pain or SOB c/o weakness Objective - Vital Signs/Intake and Output Vital Signs (last 24 hours): Temp Pulse Resp BP Pulse Ox 98.0 F 85 20 134/82 98 08/06/18 08:35 08/06/18 08:51 08/06/18 08:35 08/06/18 08:51 08/06/18 08:35 - Medications Medications: Current Medications Acetaminophen (Tylenol 325mg Tab) 650 mg PO Q6 PRN PRN Reason: Pain, Mild (1-3) Last Admin: 08/01/18 16:05 Dose: 650 mg Apixaban (Eliquis) 5 mg PO Q12 [facility]; Protocol Last Admin: 08/06/18 08:52 Dose: 5 mg Aspirin (Ecotrin) 81 mg PO DAILY [facility] Last Admin: 08/06/18 08:52 Dose: 81 mg Atorvastatin Calcium (Lipitor) 10 mg PO HS [facility] Last Admin: 08/05/18 21:23 Dose: 10 mg Docusate Sodium (Colace) 100 mg PO BID [facility] Last Admin: 08/06/18 08:50 Dose: Not Given Furosemide (Lasix) 40 mg PO BID@0600,1400 [facility] Last Admin: 08/03/18 13:59 Dose: 40 mg Guaifenesin (Robitussin) 100 mg PO Q6 PRN PRN Reason: Cough Cefepime HCl 1 gm/ Sodium (Chloride) 100 mls @ 100 mls/hr IVPB Q8 [facility]; Protocol Last Admin: 08/06/18 08:52 Dose: 100 mls/hr Lactobacillus Acidophilus (Bacid Acidophilus) 1 cap PO BID [facility] Last Admin: 08/06/18 08:50 Dose: 1 cap Levalbuterol HCl (Xopenex) 0.63 mg INH RQ6 PRN PRN Reason: Shortness of Breath Levothyroxine Sodium (Synthroid) 225 mcg PO DAILY@0630 [facility] Last Admin: 08/06/18 05:47 Dose: 225 mcg Losartan Potassium (Cozaar) 25 mg PO DAILY [facility] Last Admin: 08/06/18 08:51 Dose: 25 mg Metoprolol Tartrate (Lopressor) 50 mg PO BID [facility] Last Admin: 08/06/18 08:51 Dose: 50 mg Oxycodone/Acetaminophen (Percocet 5/325 Mg Tab) 1 tab PO Q6 PRN PRN Reason: Pain, moderate (4-7) Stop: 08/08/18 06:33 Last Admin: 08/05/18 21:29 Dose: 1 tab Pantoprazole Sodium (Protonix Ec Tab) 40 mg PO DAILY [facility] Last Admin: 08/06/18 08:53 Dose: 40 mg Polyethylene Glycol (Miralax) 17 gm PO DAILY PRN PRN Reason: Constipation Last Admin: 08/04/18 09:29 Dose: 17 gm Potassium Chloride (Klor-Con 10) 10 meq PO DAILY [facility] Last Admin: 08/06/18 08:51 Dose: 10 meq Vancomycin HCl (Vancocin (Oral/Rectal Use)) 250 mg PO QID [facility]; Protocol Last Admin: 08/06/18 12:41 Dose: 250 mg - Labs Labs: 08/04/18 06:20 08/04/18 06:20 PT 16.1 Seconds (9.8-13.1) H 08/01/18 07:00 INR 1.4 08/01/18 07:00 - Constitutional Appears: Non-toxic, No Acute Distress, Chronically Ill - Head Exam Head Exam: ATRAUMATIC, NORMAL INSPECTION, NORMOCEPHALIC - Eye Exam Eye Exam: EOMI, Normal appearance, PERRL Pupil Exam: NORMAL ACCOMODATION, PERRL - ENT Exam ENT Exam: Mucous Membranes Moist, Normal Exam - Neck Exam Neck Exam: Full ROM, Normal Inspection. absent: Lymphadenopathy - Respiratory Exam Respiratory Exam: Clear to Ausculation Bilateral, NORMAL BREATHING PATTERN - Cardiovascular Exam Cardiovascular Exam: REGULAR RHYTHM, +S1, +S2. absent: Murmur - GI/Abdominal Exam GI & Abdominal Exam: Soft, Normal Bowel Sounds. absent: Tenderness - Rectal Exam Rectal Exam: Deferred - Exam Exam: NORMAL INSPECTION - Extremities Exam Extremities Exam: Full ROM, Normal Capillary Refill, Normal Inspection. absent: Joint Swelling, Pedal Edema - Back Exam Back Exam: NORMAL INSPECTION - Neurological Exam Neurological Exam: Alert, Awake, CN II-XII Intact, Normal Gait, Oriented x3 - Psychiatric Exam Psychiatric exam: Depressed - Skin Skin Exam: Dry, Intact, Normal Color, Warm Additional comments: sternotomy scar healing nicely Assessment and Plan (1) Atrial fibrillation with normal ventricular rate Status: Acute (2) Hospital acquired PNA Status: Acute (3) Hypertension Status: Acute (4) Hypothyroidism Status: Acute (5) Hypoxemia Status: Acute (6) S/P MVR (mitral valve repair) Status: Acute (7) COPD (chronic obstructive pulmonary disease) Status: Chronic (8) Morbid obesity with BMI of 45.0-49.9, adult Status: Chronic - Assessment and Plan (Free Text) Assessment: resolving c diff pneumonia resolving s/p MVR deconditioning d/c antibiotic if ok with Dr Samia Landa for 14 days
--- NOTE | 2018-08-06 14:54 | CP.PCM.PN ---
Subjective - Date & Time of Evaluation Date of Evaluation: 08/06/18 Time of Evaluation: 13:40 - Subjective Subjective: F/U F/U Pulmonary consult. No SOB with NC O2, no cough Objective - Vital Signs/Intake and Output Vital Signs (last 24 hours): Temp Pulse Resp BP Pulse Ox 98.0 F 85 20 134/82 98 08/06/18 08:35 08/06/18 08:51 08/06/18 08:35 08/06/18 08:51 08/06/18 08:35 - Medications Medications: Current Medications Acetaminophen (Tylenol 325mg Tab) 650 mg PO Q6 PRN PRN Reason: Pain, Mild (1-3) Last Admin: 08/01/18 16:05 Dose: 650 mg Apixaban (Eliquis) 5 mg PO Q12 [facility]; Protocol Last Admin: 08/06/18 08:52 Dose: 5 mg Aspirin (Ecotrin) 81 mg PO DAILY [facility] Last Admin: 08/06/18 08:52 Dose: 81 mg Atorvastatin Calcium (Lipitor) 10 mg PO HS [facility] Last Admin: 08/05/18 21:23 Dose: 10 mg Docusate Sodium (Colace) 100 mg PO BID [facility] Last Admin: 08/06/18 08:50 Dose: Not Given Furosemide (Lasix) 40 mg PO BID@0600,1400 [facility] Last Admin: 08/03/18 13:59 Dose: 40 mg Guaifenesin (Robitussin) 100 mg PO Q6 PRN PRN Reason: Cough Cefepime HCl 1 gm/ Sodium (Chloride) 100 mls @ 100 mls/hr IVPB Q8 [facility]; Protocol Last Admin: 08/06/18 08:52 Dose: 100 mls/hr Lactobacillus Acidophilus (Bacid Acidophilus) 1 cap PO BID [facility] Last Admin: 08/06/18 08:50 Dose: 1 cap Levalbuterol HCl (Xopenex) 0.63 mg INH RQ6 PRN PRN Reason: Shortness of Breath Levothyroxine Sodium (Synthroid) 225 mcg PO DAILY@0630 [facility] Last Admin: 08/06/18 05:47 Dose: 225 mcg Losartan Potassium (Cozaar) 25 mg PO DAILY [facility] Last Admin: 08/06/18 08:51 Dose: 25 mg Metoprolol Tartrate (Lopressor) 50 mg PO BID [facility] Last Admin: 08/06/18 08:51 Dose: 50 mg Oxycodone/Acetaminophen (Percocet 5/325 Mg Tab) 1 tab PO Q6 PRN PRN Reason: Pain, moderate (4-7) Stop: 08/08/18 06:33 Last Admin: 08/05/18 21:29 Dose: 1 tab Pantoprazole Sodium (Protonix Ec Tab) 40 mg PO DAILY [facility] Last Admin: 08/06/18 08:53 Dose: 40 mg Polyethylene Glycol (Miralax) 17 gm PO DAILY PRN PRN Reason: Constipation Last Admin: 08/04/18 09:29 Dose: 17 gm Potassium Chloride (Klor-Con 10) 10 meq PO DAILY [facility] Last Admin: 08/06/18 08:51 Dose: 10 meq Vancomycin HCl (Vancocin (Oral/Rectal Use)) 250 mg PO QID [facility]; Protocol Last Admin: 08/06/18 12:41 Dose: 250 mg - Labs Labs: 08/04/18 06:20 08/04/18 06:20 PT 16.1 Seconds (9.8-13.1) H 08/01/18 07:00 INR 1.4 08/01/18 07:00 - Constitutional Appears: No Acute Distress - Head Exam Head Exam: NORMAL INSPECTION - Eye Exam Eye Exam: PERRL - ENT Exam ENT Exam: Normal Exam - Neck Exam Neck Exam: Normal Inspection - Respiratory Exam Respiratory Exam: NORMAL BREATHING PATTERN - Cardiovascular Exam Cardiovascular Exam: Irregular Rhythm, Murmur (systolic) Additional comments: Midsternal surgical incision healing well - GI/Abdominal Exam GI & Abdominal Exam: Soft, Normal Bowel Sounds - Extremities Exam Additional comments: Edema BLE - Back Exam Back Exam: NORMAL INSPECTION - Neurological Exam Neurological Exam: Alert, Oriented x3, Reflexes Normal - Psychiatric Exam Psychiatric exam: Normal Mood - Skin Skin Exam: Warm Assessment and Plan (1) Hospital acquired PNA Status: Acute (2) Hypoxemia Status: Acute (3) COPD (chronic obstructive pulmonary disease) Status: Chronic (4) S/P MVR (mitral valve repair) Status: Acute (5) Morbid obesity with BMI of 45.0-49.9, adult Status: Chronic - Assessment and Plan (Free Text) Plan: CXR: resolving PNA, agree with DC IV abx for PNA. continue Vanco po and rest of Tx.
--- NOTE | 2018-08-06 15:02 | RAD ---
Date of service: 08/06/2018 HISTORY: pneumonia COMPARISON: 08/01/2018. Single-view chest 07/30/2018. CT thorax TECHNIQUE: Chest PA and lateral views FINDINGS: LUNGS: No active pulmonary disease. PLEURA: No significant pleural effusion identified. No pneumothorax apparent. CARDIOVASCULAR: No aortic atherosclerotic calcification present. No radiographic findings to suggest acute or significant cardiovascular disease. Incidental Finding(s): Postoperative changes related to sternotomy. OSSEOUS STRUCTURES: No significant abnormalities. VISUALIZED UPPER ABDOMEN: Normal. OTHER FINDINGS: None. IMPRESSION: No active disease. No significant interval change compared to the prior examination(s).
--- NOTE | 2018-08-06 15:10 | CP.PCM.PN ---
Subjective - Date & Time of Evaluation Date of Evaluation: 08/06/18 Time of Evaluation: 07:45 - Subjective Subjective: Patient seen and examined this morning with Dr. Mirza. VS stable. No acute event reported overnight. NAD, improved diarrhea C.diff + started on Vanco PO snf probiotics C/w HCAP treatment Patient reports feeling tired Improved LEs edema/swelling Denies any pain or SOB, + NC use Encourage PT Objective - Vital Signs/Intake and Output Vital Signs (last 24 hours): Temp Pulse Resp BP Pulse Ox 98.0 F 85 20 134/82 98 08/06/18 08:35 08/06/18 08:51 08/06/18 08:35 08/06/18 08:51 08/06/18 08:35 - Medications Medications: Current Medications Acetaminophen (Tylenol 325mg Tab) 650 mg PO Q6 PRN PRN Reason: Pain, Mild (1-3) Last Admin: 08/01/18 16:05 Dose: 650 mg Apixaban (Eliquis) 5 mg PO Q12 [facility]; Protocol Last Admin: 08/06/18 08:52 Dose: 5 mg Aspirin (Ecotrin) 81 mg PO DAILY [facility] Last Admin: 08/06/18 08:52 Dose: 81 mg Atorvastatin Calcium (Lipitor) 10 mg PO HS [facility] Last Admin: 08/05/18 21:23 Dose: 10 mg Docusate Sodium (Colace) 100 mg PO BID [facility] Last Admin: 08/06/18 08:50 Dose: Not Given Furosemide (Lasix) 40 mg PO BID@0600,1400 [facility] Last Admin: 08/03/18 13:59 Dose: 40 mg Guaifenesin (Robitussin) 100 mg PO Q6 PRN PRN Reason: Cough Cefepime HCl 1 gm/ Sodium (Chloride) 100 mls @ 100 mls/hr IVPB Q8 [facility]; Protocol Last Admin: 08/06/18 08:52 Dose: 100 mls/hr Lactobacillus Acidophilus (Bacid Acidophilus) 1 cap PO BID [facility] Last Admin: 08/06/18 08:50 Dose: 1 cap Levalbuterol HCl (Xopenex) 0.63 mg INH RQ6 PRN PRN Reason: Shortness of Breath Levothyroxine Sodium (Synthroid) 225 mcg PO DAILY@0630 [facility] Last Admin: 08/06/18 05:47 Dose: 225 mcg Losartan Potassium (Cozaar) 25 mg PO DAILY [facility] Last Admin: 08/06/18 08:51 Dose: 25 mg Metoprolol Tartrate (Lopressor) 50 mg PO BID [facility] Last Admin: 08/06/18 08:51 Dose: 50 mg Oxycodone/Acetaminophen (Percocet 5/325 Mg Tab) 1 tab PO Q6 PRN PRN Reason: Pain, moderate (4-7) Stop: 08/08/18 06:33 Last Admin: 08/05/18 21:29 Dose: 1 tab Pantoprazole Sodium (Protonix Ec Tab) 40 mg PO DAILY [facility] Last Admin: 08/06/18 08:53 Dose: 40 mg Polyethylene Glycol (Miralax) 17 gm PO DAILY PRN PRN Reason: Constipation Last Admin: 08/04/18 09:29 Dose: 17 gm Potassium Chloride (Klor-Con 10) 10 meq PO DAILY [facility] Last Admin: 08/06/18 08:51 Dose: 10 meq Vancomycin HCl (Vancocin (Oral/Rectal Use)) 250 mg PO QID [facility]; Protocol Last Admin: 08/06/18 12:41 Dose: 250 mg - Labs Labs: 08/04/18 06:20 08/04/18 06:20 PT 16.1 Seconds (9.8-13.1) H 08/01/18 07:00 INR 1.4 08/01/18 07:00 - Constitutional Appears: No Acute Distress - Head Exam Head Exam: NORMAL INSPECTION - Eye Exam Eye Exam: EOMI, Normal appearance, PERRL Pupil Exam: NORMAL ACCOMODATION - ENT Exam ENT Exam: Mucous Membranes Moist - Neck Exam Neck Exam: Normal Inspection - Respiratory Exam Respiratory Exam: Clear to Ausculation Bilateral, Wheezes, NORMAL BREATHING PATTERN - Cardiovascular Exam Cardiovascular Exam: REGULAR RHYTHM, +S1, +S2 - GI/Abdominal Exam GI & Abdominal Exam: Soft, Normal Bowel Sounds. absent: Tenderness - Extremities Exam Extremities Exam: Pedal Edema Additional comments: Improved b/l leg swelling - Back Exam Back Exam: NORMAL INSPECTION - Neurological Exam Neurological Exam: Alert, Awake, CN II-XII Intact, Oriented x3 Neuro motor strength exam: Left Upper Extremity: 4, Right Upper Extremity: 4, Left Lower Extremity: 4, Right Lower Extremity: 4 - Psychiatric Exam Psychiatric exam: Normal Affect - Skin Skin Exam: Normal Color Assessment and Plan - Assessment and Plan (Free Text) Assessment: A/P: 47 y/o F with a PMHx of hypothyrodisim, HTN, morbid obesity, rheumatic mitral valve disease and AFib, 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 --HCAP: Pulmonary and ID consult appreciated, S/p PICC line, Cefepime IV --Cardiology on board, Dr Villalobos, recommendations appreciated --Recovering well from surgery, s/p open MV replacement, c/w ASA/Eliquis/Lipitor/Losartan/Metoprolol, HOLD lasix --Valvular A.fib: C/w ASA and Eliquis (No warfarin, eliquis with good results as per cardio) --Lower extremities swelling and pain: Improved s/p Lasix (Held for low BP) --Intermittent left arm weakness/numbness: Possibly due to surgery/inactivity, CT head 07/29: no new changes, + old infract --Diarrhea: + C.diff, START pro-biotics and Vanco day 2 --C/w Levothyroxine --Echocardio with 50-55% EF --C/w PT and plan as ordered --DVT PPX: Eliquis Case discussed and Patient seen with Dr. Mirza.
[2018-08-06] MEDS: Oxycodone/Acetaminophen 5/325 mg Tab PO PRN (21:09)
[2018-08-07] MEDS: Cefepime 1 GM in Sodium Chloride 0.9% 100 ML IVPB SCH ×2 (01:39→10:00)
[2018-08-07] MEDS: Levothyroxine 75 MCG TAB PO SCH (06:28)
[2018-08-07] MEDS: Lactobacillus Acidophilus 500 MU Cap PO SCH ×2 (09:58→17:33)
[2018-08-07] MEDS: Potassium Chloride 10 mEq ER Tab PO SCH (09:58)
[2018-08-07] MEDS: Pantoprazole 40 mg EC Tab PO SCH (09:59)
[2018-08-07] MEDS: Vancomycin 500 mg (Oral/Rectal USE) PO SCH ×4 (10:01→21:53)
--- NOTE | 2018-08-07 12:35 | PN ---
DATE: 08/07/2018 SUBJECTIVE: The patient seen and examined. Interim events noted. Consults noted and appreciated. Cardiology, Pulmonary, Infectious Disease followup and interventions noted and appreciated. The patient remains in Transitional Care Unit. The patient is awake, responsive, feels okay. Pain is adequately controlled. No new complaint. No chest pain, no shortness of breath. The patient is able to ambulate. PHYSICAL EXAMINATION: GENERAL: The patient is in no acute distress. VITAL SIGNS: Stable. HEART: S1 and S2 normal and regular. LUNGS: Good bilateral air exchange. ABDOMEN: Soft, nontender. EXTREMITIES: No edema, no calf swelling, no tenderness, no acute ischemia. CENTRAL NERVOUS SYSTEM: Exam is essentially unchanged. DIAGNOSTIC DATA: Available diagnostic data reviewed. Overall, the patient is medically stable. Plan as ordered. Roberto Mirza MD
--- NOTE | 2018-08-07 19:34 | CP.PCM.PN ---
Subjective - Date & Time of Evaluation Date of Evaluation: 08/07/18 Time of Evaluation: 11:30 - Subjective Subjective: F/U pulmonary consult. No A/D, no SOB on O2 NC, occasional cough. Objective - Vital Signs/Intake and Output Vital Signs (last 24 hours): Temp Pulse Resp BP Pulse Ox 97.9 F 82 20 111/80 99 08/07/18 15:49 08/07/18 17:34 08/07/18 15:49 08/07/18 17:34 08/07/18 15:49 - Medications Medications: Current Medications Acetaminophen (Tylenol 325mg Tab) 650 mg PO Q6 PRN PRN Reason: Pain, Mild (1-3) Last Admin: 08/07/18 09:58 Dose: 650 mg Apixaban (Eliquis) 5 mg PO Q12 [facility]; Protocol Last Admin: 08/07/18 09:58 Dose: 5 mg Aspirin (Ecotrin) 81 mg PO DAILY [facility] Last Admin: 08/07/18 09:59 Dose: 81 mg Atorvastatin Calcium (Lipitor) 10 mg PO HS [facility] Last Admin: 08/06/18 21:05 Dose: 10 mg Docusate Sodium (Colace) 100 mg PO BID [facility] Last Admin: 08/07/18 17:33 Dose: Not Given Furosemide (Lasix) 40 mg PO BID@0600,1400 [facility] Last Admin: 08/03/18 13:59 Dose: 40 mg Guaifenesin (Robitussin) 100 mg PO Q6 PRN PRN Reason: Cough Lactobacillus Acidophilus (Bacid Acidophilus) 1 cap PO BID [facility] Last Admin: 08/07/18 17:33 Dose: 1 cap Levalbuterol HCl (Xopenex) 0.63 mg INH RQ6 PRN PRN Reason: Shortness of Breath Levothyroxine Sodium (Synthroid) 225 mcg PO DAILY@0630 [facility] Last Admin: 08/07/18 06:28 Dose: 225 mcg Losartan Potassium (Cozaar) 25 mg PO DAILY [facility] Last Admin: 08/07/18 09:59 Dose: 25 mg Metoprolol Tartrate (Lopressor) 50 mg PO BID [facility] Last Admin: 08/07/18 17:34 Dose: 50 mg Oxycodone/Acetaminophen (Percocet 5/325 Mg Tab) 1 tab PO Q6 PRN PRN Reason: Pain, moderate (4-7) Stop: 08/08/18 06:33 Last Admin: 08/06/18 21:09 Dose: 1 tab Pantoprazole Sodium (Protonix Ec Tab) 40 mg PO DAILY [facility] Last Admin: 08/07/18 09:59 Dose: 40 mg Polyethylene Glycol (Miralax) 17 gm PO DAILY PRN PRN Reason: Constipation Last Admin: 08/04/18 09:29 Dose: 17 gm Potassium Chloride (Klor-Con 10) 10 meq PO DAILY [facility] Last Admin: 08/07/18 09:58 Dose: 10 meq Vancomycin HCl (Vancocin (Oral/Rectal Use)) 250 mg PO QID [facility]; Protocol Last Admin: 08/07/18 17:34 Dose: 250 mg - Labs Labs: 08/04/18 06:20 08/04/18 06:20 PT 16.1 Seconds (9.8-13.1) H 08/01/18 07:00 INR 1.4 08/01/18 07:00 - Constitutional Appears: No Acute Distress - Head Exam Head Exam: NORMAL INSPECTION - Eye Exam Eye Exam: PERRL - ENT Exam ENT Exam: Normal Exam - Neck Exam Neck Exam: Normal Inspection - Respiratory Exam Respiratory Exam: NORMAL BREATHING PATTERN - Cardiovascular Exam Cardiovascular Exam: Irregular Rhythm, Murmur (systolic) Additional comments: Midsternal surgical incision healing well - GI/Abdominal Exam GI & Abdominal Exam: Soft, Normal Bowel Sounds - Extremities Exam Additional comments: edema BLE - Back Exam Back Exam: NORMAL INSPECTION - Neurological Exam Neurological Exam: Alert, Oriented x3, Reflexes Normal - Psychiatric Exam Psychiatric exam: Normal Mood - Skin Skin Exam: Warm Assessment and Plan (1) Hospital acquired PNA Status: Acute (2) Hypoxemia Status: Acute (3) COPD (chronic obstructive pulmonary disease) Status: Chronic (4) S/P MVR (mitral valve repair) Status: Acute (5) Morbid obesity with BMI of 45.0-49.9, adult Status: Chronic - Assessment and Plan (Free Text) Plan: Pulmonary clear for discharge.
[2018-08-07] MEDS: Oxycodone/Acetaminophen 5/325 mg Tab PO PRN (21:47)
[2018-08-08] MEDS: Levothyroxine 75 MCG TAB PO SCH (06:47)
[2018-08-08] MEDS: Pantoprazole 40 mg EC Tab PO SCH (09:06)
[2018-08-08] MEDS: Potassium Chloride 10 mEq ER Tab PO SCH (09:07)
[2018-08-08] MEDS: Vancomycin 500 mg (Oral/Rectal USE) PO SCH ×4 (09:08→21:54)
[2018-08-08] MEDS: Lactobacillus Acidophilus 500 MU Cap PO SCH ×2 (10:00→16:44)
--- NOTE | 2018-08-08 12:49 | CP.PCM.PN ---
Subjective - Date & Time of Evaluation Date of Evaluation: 08/08/18 Time of Evaluation: 07:00 - Subjective Subjective: diarrhea resolved no fever less cough Objective - Vital Signs/Intake and Output Vital Signs (last 24 hours): Temp Pulse Resp BP Pulse Ox 97.7 F 80 20 113/78 99 08/08/18 08:13 08/08/18 09:07 08/08/18 08:13 08/08/18 09:07 08/08/18 08:13 - Medications Medications: Current Medications Acetaminophen (Tylenol 325mg Tab) 650 mg PO Q6 PRN PRN Reason: Pain, Mild (1-3) Last Admin: 08/07/18 09:58 Dose: 650 mg Apixaban (Eliquis) 5 mg PO Q12 [facility]; Protocol Last Admin: 08/08/18 09:07 Dose: 5 mg Aspirin (Ecotrin) 81 mg PO DAILY [facility] Last Admin: 08/08/18 09:08 Dose: 81 mg Atorvastatin Calcium (Lipitor) 10 mg PO HS [facility] Last Admin: 08/07/18 21:48 Dose: 10 mg Docusate Sodium (Colace) 100 mg PO BID [facility] Last Admin: 08/08/18 09:06 Dose: Not Given Furosemide (Lasix) 40 mg PO BID@0600,1400 [facility] Last Admin: 08/03/18 13:59 Dose: 40 mg Guaifenesin (Robitussin) 100 mg PO Q6 PRN PRN Reason: Cough Lactobacillus Acidophilus (Bacid Acidophilus) 1 cap PO BID [facility] Last Admin: 08/07/18 17:33 Dose: 1 cap Levalbuterol HCl (Xopenex) 0.63 mg INH RQ6 PRN PRN Reason: Shortness of Breath Levothyroxine Sodium (Synthroid) 225 mcg PO DAILY@0630 [facility] Last Admin: 08/08/18 06:47 Dose: 225 mcg Losartan Potassium (Cozaar) 25 mg PO DAILY [facility] Last Admin: 08/08/18 09:07 Dose: 25 mg Metoprolol Tartrate (Lopressor) 50 mg PO BID [facility] Last Admin: 08/08/18 09:06 Dose: 50 mg Pantoprazole Sodium (Protonix Ec Tab) 40 mg PO DAILY [facility] Last Admin: 08/08/18 09:06 Dose: 40 mg Polyethylene Glycol (Miralax) 17 gm PO DAILY PRN PRN Reason: Constipation Last Admin: 08/04/18 09:29 Dose: 17 gm Potassium Chloride (Klor-Con 10) 10 meq PO DAILY [facility] Last Admin: 08/08/18 09:07 Dose: 10 meq Vancomycin HCl (Vancocin (Oral/Rectal Use)) 250 mg PO QID [facility]; Protocol Last Admin: 08/08/18 09:08 Dose: 250 mg - Labs Labs: 08/04/18 06:20 08/04/18 06:20 PT 16.1 Seconds (9.8-13.1) H 08/01/18 07:00 INR 1.4 08/01/18 07:00 - Constitutional Appears: Non-toxic, In Acute Distress, Chronically Ill - Head Exam Head Exam: ATRAUMATIC, NORMAL INSPECTION, NORMOCEPHALIC - Eye Exam Eye Exam: EOMI, Normal appearance, PERRL Pupil Exam: NORMAL ACCOMODATION, PERRL - ENT Exam ENT Exam: Mucous Membranes Moist, Normal Exam - Neck Exam Neck Exam: Full ROM, Normal Inspection. absent: Lymphadenopathy - Respiratory Exam Respiratory Exam: Clear to Ausculation Bilateral, NORMAL BREATHING PATTERN - Cardiovascular Exam Cardiovascular Exam: REGULAR RHYTHM, +S1, +S2. absent: Murmur - GI/Abdominal Exam GI & Abdominal Exam: Soft, Normal Bowel Sounds. absent: Tenderness - Rectal Exam Rectal Exam: Deferred - Exam Exam: NORMAL INSPECTION - Extremities Exam Extremities Exam: Full ROM, Normal Capillary Refill, Normal Inspection. absent: Joint Swelling, Pedal Edema - Back Exam Back Exam: NORMAL INSPECTION - Neurological Exam Neurological Exam: Alert, Awake, CN II-XII Intact, Normal Gait, Oriented x3 - Psychiatric Exam Psychiatric exam: Normal Affect, Normal Mood - Skin Skin Exam: Dry, Intact, Normal Color, Warm Assessment and Plan (1) Atrial fibrillation with normal ventricular rate Status: Acute (2) Hospital acquired PNA Status: Acute (3) Hypertension Status: Acute (4) Hypothyroidism Status: Acute (5) Hypoxemia Status: Acute (6) S/P MVR (mitral valve repair) Status: Acute (7) COPD (chronic obstructive pulmonary disease) Status: Chronic (8) Morbid obesity with BMI of 45.0-49.9, adult Status: Chronic - Assessment and Plan (Free Text) Assessment: d/c home on PO Vanco for 10 days for follow up with dr Gracia
[2018-08-08] MEDS: NEOSPORIN OU SCH ×2 (13:20→16:45)
--- NOTE | 2018-08-08 14:18 | PN ---
DATE: 08/08/2018 SUBJECTIVE: The patient seen and examined. Interim events noted. Consults noted and appreciated. Pulmonary followup and interventions noted and appreciated. The patient remains in Transitional Care Unit. Feels better, awake, responsive. No chest pain, no shortness of breath. She has problems wiping herself after bowel movements as the patient cannot bend forward and is not able to reach without bending. PHYSICAL EXAMINATION: GENERAL: The patient is in no acute distress. VITAL SIGNS: Stable. HEART: S1, S2. Normal and regular. LUNGS: Good bilateral air exchange. ABDOMEN: Soft, nontender. EXTREMITIES: No edema, no calf swelling, no tenderness, no acute ischemia. CENTRAL NERVOUS SYSTEM: Exam is essentially unchanged. DIAGNOSTIC DATA: Available diagnostic data reviewed. ASSESSMENT AND PLAN: Overall, the patient is medically stable. Plan as ordered. Roberto Mirza MD
[2018-08-08] MEDS: Oxycodone/Acetaminophen 5/325 mg Tab PO PRN (21:55)
[2018-08-09] MEDS: Levothyroxine 75 MCG TAB PO SCH (06:07)
[2018-08-09 06:48] LABS: HEMOGLOBIN 11.2 g/dL (12.0-16.0); MEAN CELL VOLUME 86.2 fl (81.0-99.0); MEAN CORPUSCULAR HEMOGLOBIN 28.2 pg (27.0-31.0); MEAN CORPUSCULAR HGB CONC 32.7 g/dL (33.0-37.0); RBC 3.97 Mil/uL (3.80-5.20); WHITE BLOOD COUNT 8.8 K/uL (4.8-10.8)
[2018-08-09 07:15] LABS: ALB/GLOB RATIO 1.3 (1.0-2.1); ALBUMIN 3.9 g/dL (3.5-5.0); ALT/SGPT 30 U/L (9-52); AST/SGOT 34 U/L (14-36); BLOOD UREA NITROGEN 7 mg/dl (7-17); CALCIUM 9.1 mg/dL (8.4-10.2); GFR NON-AFRICAN AMERICAN > 60
[2018-08-09] MEDS: Vancomycin 500 mg (Oral/Rectal USE) PO SCH ×4 (09:18→22:55)
[2018-08-09] MEDS: Pantoprazole 40 mg EC Tab PO SCH (09:19)
[2018-08-09] MEDS: Potassium Chloride 10 mEq ER Tab PO SCH (09:20)
[2018-08-09] MEDS: NEOSPORIN OU SCH ×3 (09:20→17:34)
[2018-08-09] MEDS: Lactobacillus Acidophilus 500 MU Cap PO SCH ×2 (09:23→17:32)
--- NOTE | 2018-08-09 12:04 | PN ---
DATE: 08/09/2018 SUBJECTIVE: The patient seen and examined. Interim events noted. Consults noted and appreciated. Infectious disease followup and intervention noted and appreciated. The patient remains in transitional care unit. The patient feels better. Denies any specific complaint. No chest pain or shortness of breath. PHYSICAL EXAMINATION: GENERAL: The patient is in no acute distress. VITAL SIGNS: Stable. HEART: S1, S2. Normal and regular. LUNGS: Good bilateral air exchange. ABDOMEN: Soft, nontender. EXTREMITIES: No edema. No calf swelling. No tenderness, no acute ischemia. CENTRAL NERVOUS SYSTEM: Essentially unchanged. Surgical site is clean. DIAGNOSTIC DATA: Available diagnostic data reviewed. Overall, the patient's general medical condition is stable. Plan as ordered. Roberto Mirza MD
--- NOTE | 2018-08-09 12:25 | CP.PCM.PN ---
Subjective - Date & Time of Evaluation Date of Evaluation: 08/09/18 Time of Evaluation: 12:24 - Subjective Subjective: stable diarrhear resolved cleared by ID for dc home on PO vanco mild chest wall discomfort Objective - Vital Signs/Intake and Output Vital Signs (last 24 hours): Temp Pulse Resp BP Pulse Ox 97.8 F 81 16 126/84 98 08/09/18 09:17 08/09/18 09:19 08/09/18 09:17 08/09/18 09:19 08/09/18 09:17 - Medications Medications: Current Medications Acetaminophen (Tylenol 325mg Tab) 650 mg PO Q6 PRN PRN Reason: Pain, Mild (1-3) Last Admin: 08/08/18 13:25 Dose: 650 mg Apixaban (Eliquis) 5 mg PO Q12 [facility]; Protocol Last Admin: 08/09/18 09:20 Dose: 5 mg Aspirin (Ecotrin) 81 mg PO DAILY [facility] Last Admin: 08/09/18 09:20 Dose: 81 mg Atorvastatin Calcium (Lipitor) 10 mg PO HS [facility] Last Admin: 08/08/18 21:55 Dose: 10 mg Docusate Sodium (Colace) 100 mg PO BID [facility] Last Admin: 08/09/18 09:18 Dose: Not Given Furosemide (Lasix) 40 mg PO BID@0600,1400 [facility] Last Admin: 08/03/18 13:59 Dose: 40 mg Guaifenesin (Robitussin) 100 mg PO Q6 PRN PRN Reason: Cough Lactobacillus Acidophilus (Bacid Acidophilus) 1 cap PO BID [facility] Last Admin: 08/09/18 09:23 Dose: 1 cap Levalbuterol HCl (Xopenex) 0.63 mg INH RQ6 PRN PRN Reason: Shortness of Breath Levothyroxine Sodium (Synthroid) 225 mcg PO DAILY@0630 [facility] Last Admin: 08/09/18 06:07 Dose: 225 mcg Losartan Potassium (Cozaar) 25 mg PO DAILY [facility] Last Admin: 08/09/18 09:19 Dose: 25 mg Metoprolol Tartrate (Lopressor) 50 mg PO BID [facility] Last Admin: 08/09/18 09:19 Dose: 50 mg Neomycin/Polymyxin/Gramicidin (Neosporin Opht Lavonne) 1 drop OU TID [facility] Last Admin: 08/09/18 09:20 Dose: 1 drop Oxycodone/Acetaminophen (Percocet 5/325 Mg Tab) 1 tab PO Q6 PRN PRN Reason: Pain, moderate (4-7) Stop: 08/11/18 21:45 Last Admin: 08/08/18 21:55 Dose: 1 tab Pantoprazole Sodium (Protonix Ec Tab) 40 mg PO DAILY [facility] Last Admin: 08/09/18 09:19 Dose: 40 mg Polyethylene Glycol (Miralax) 17 gm PO DAILY PRN PRN Reason: Constipation Last Admin: 08/04/18 09:29 Dose: 17 gm Potassium Chloride (Klor-Con 10) 10 meq PO DAILY [facility] Last Admin: 08/09/18 09:20 Dose: 10 meq Vancomycin HCl (Vancocin (Oral/Rectal Use)) 250 mg PO QID [facility]; Protocol Last Admin: 08/09/18 09:18 Dose: 250 mg - Labs Labs: 08/09/18 05:45 08/09/18 05:45 PT 16.1 Seconds (9.8-13.1) H 08/01/18 07:00 INR 1.4 08/01/18 07:00 - Constitutional Appears: Well - Head Exam Head Exam: ATRAUMATIC, NORMAL INSPECTION, NORMOCEPHALIC - Eye Exam Eye Exam: EOMI, Normal appearance, PERRL Pupil Exam: NORMAL ACCOMODATION, PERRL - ENT Exam ENT Exam: Mucous Membranes Moist, Normal Exam - Neck Exam Neck Exam: Full ROM, Normal Inspection. absent: Lymphadenopathy - Respiratory Exam Respiratory Exam: Clear to Ausculation Bilateral, NORMAL BREATHING PATTERN - Cardiovascular Exam Cardiovascular Exam: REGULAR RHYTHM, +S1, +S2. absent: Murmur - GI/Abdominal Exam GI & Abdominal Exam: Soft, Normal Bowel Sounds. absent: Tenderness - Extremities Exam Extremities Exam: Full ROM, Normal Capillary Refill, Normal Inspection. absent: Joint Swelling, Pedal Edema - Back Exam Back Exam: NORMAL INSPECTION - Neurological Exam Neurological Exam: Alert, Awake, CN II-XII Intact, Normal Gait, Oriented x3 - Psychiatric Exam Psychiatric exam: Normal Affect, Normal Mood - Skin Skin Exam: Dry, Intact, Normal Color, Warm Assessment and Plan (1) S/P MVR (mitral valve repair) Status: Acute (2) Atrial fibrillation with normal ventricular rate Status: Acute (3) Hypertension Status: Acute (4) Hypothyroidism Status: Acute (5) Morbid obesity Status: Deleted
[2018-08-09] MEDS: Oxycodone/Acetaminophen 5/325 mg Tab PO PRN (22:54)
[2018-08-10] MEDS: Levothyroxine 75 MCG TAB PO SCH (07:01)
--- NOTE | 2018-08-10 07:20 | CP.PCM.DIS ---
Provider - Provider Date of Admission: 07/23/18 17:54 Attending physician: Roberto Mirza MD Primary care physician: unknown Consults: 07/23/18 18:37 Nursing Referral for Wound Care Routine Comment: Physician Instructions: Reason For Exam: healing sx site on the sternum 07/24/18 07:11 Cardiology Consult Routine Comment: Consulting Provider: Zaki Villalobos Consulting Physician: Zaki Villalobos Reason for Consult: A Fib 07/30/18 12:06 Pulmonology Consult Routine Comment: Consulting Provider: Dimitri Gracia Consulting Physician: Dimitri Gracia Reason for Consult: S/p surgery, continues desaturating off O2 08/02/18 18:03 Infectious Disease Consult Routine Comment: Consulting Provider: Kunal Burch Consulting Physician: Kunal Burch Reason for Consult: sputum culture gram negative rods Time Spent in preparation of Discharge (in minutes): 40 Diagnosis - Discharge Diagnosis (1) S/P MVR (mitral valve replacement) Status: Acute (2) Atrial fibrillation with normal ventricular rate Status: Chronic (3) Hospital acquired PNA Status: Acute Priority: High (4) Hypertension Status: Chronic (5) Hypothyroidism Status: Chronic (6) Hypoxemia Status: Acute Priority: High (7) Morbid obesity with BMI of 45.0-49.9, adult Status: Chronic Priority: High Hospital Course - Lab Results Lab Results: Micro Results 08/03/18 06:15 Blood-Venous Blood Culture - Final NO GROWTH AFTER 5 DAYS 08/03/18 06:25 Blood-Venous Blood Culture - Final NO GROWTH AFTER 5 DAYS 08/03/18 06:25 Blood-Venous Gram Stain - Final TEST NOT PERFORMED 08/01/18 11:50 Sputum Gram Stain - Final 08/01/18 11:50 Sputum Sputum Culture - Final Klebsiella Pneumoniae Ssp Pneu Most Recent Lab Values WBC 8.8 K/uL (4.8-10.8) 08/09/18 05:45 RBC 3.97 Mil/uL (3.80-5.20) 08/09/18 05:45 Hgb 11.2 g/dL (12.0-16.0) L 08/09/18 05:45 Hct 34.2 % (34.0-47.0) 08/09/18 05:45 MCV 86.2 fl (81.0-99.0) 08/09/18 05:45 MCH 28.2 pg (27.0-31.0) 08/09/18 05:45 MCHC 32.7 g/dL (33.0-37.0) L 08/09/18 05:45 RDW 16.0 % (11.5-14.5) H 08/09/18 05:45 Plt Count 337 K/uL (130-400) 08/09/18 05:45 MPV 8.7 fl (7.2-11.7) 08/04/18 06:20 Neut % (Auto) 73.8 % (50.0-75.0) 08/04/18 06:20 Lymph % (Auto) 16.4 % (20.0-40.0) L 08/04/18 06:20 Dunn % (Auto) 7.6 % (0.0-10.0) 08/04/18 06:20 Eos % (Auto) 1.3 % (0.0-4.0) 08/04/18 06:20 Baso % (Auto) 0.9 % (0.0-2.0) 08/04/18 06:20 Neut # (Auto) 5.9 K/uL (1.8-7.0) 08/04/18 06:20 Lymph # (Auto) 1.3 K/uL (1.0-4.3) 08/04/18 06:20 Dunn # (Auto) 0.6 K/uL (0.0-0.8) 08/04/18 06:20 Eos # (Auto) 0.1 K/uL (0.0-0.7) 08/04/18 06:20 Baso # (Auto) 0.1 K/uL (0.0-0.2) 08/04/18 06:20 PT 16.1 Seconds (9.8-13.1) H 08/01/18 07:00 INR 1.4 08/01/18 07:00 Sodium 134 mmol/l (132-148) 08/09/18 05:45 Potassium 4.3 MMOL/L (3.6-5.0) 08/09/18 05:45 Chloride 93 mmol/L (98-107) L 08/09/18 05:45 Carbon Dioxide 31 mmol/L (22-30) H 08/09/18 05:45 Anion Gap 14 (10-20) 08/09/18 05:45 BUN 7 mg/dl (7-17) 08/09/18 05:45 Creatinine 0.4 mg/dl (0.7-1.2) L 08/09/18 05:45 Est GFR ( Amer) > 60 08/09/18 05:45 Est GFR (Non-Af Amer) > 60 08/09/18 05:45 Random Glucose 93 mg/dL (65-105) 08/09/18 05:45 Calcium 9.1 mg/dL (8.4-10.2) 08/09/18 05:45 Phosphorus 4.2 mg/dl (2.5-4.5) 07/24/18 05:20 Magnesium 2.0 MG/DL (1.6-2.3) 07/24/18 05:20 Total Bilirubin 0.5 mg/dl (0.2-1.3) 08/09/18 05:45 AST 34 U/L (14-36) 08/09/18 05:45 ALT 30 U/L (9-52) 08/09/18 05:45 Alkaline Phosphatase 105 U/L (38-126) 08/09/18 05:45 NT-Pro-B Natriuret Pep 1840 pg/ml (0-450) H 07/26/18 12:15 Total Protein 6.9 G/DL (6.3-8.2) 08/09/18 05:45 Albumin 3.9 g/dL (3.5-5.0) 08/09/18 05:45 Globulin 3.0 gm/dL (2.2-3.9) 08/09/18 05:45 Albumin/Globulin Ratio 1.3 (1.0-2.1) 08/09/18 05:45 Vitamin B12 905 pg/mL (239-931) 07/24/18 05:20 Thyroxine (T4) 9.77 ug/dl (5.5-11.0) 07/24/18 05:20 Total T3 0.787 nmol/L (1.49-2.60) L 07/24/18 05:20 TSH 3rd Generation 3.43 mIU/ML (0.46-4.68) 07/24/18 05:20 C. 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 Patient had severe mitral regurgitation status post percutaneous mitral valvuloplasty that was done in [address] Maria A Arce at [place] atrial fibrillation diagnosed in December 2017 on Eliquis who was recently evaluated by Dr. Andres from [place] and was transferred over to [facility] where she underwent a mitral valve replacement by Dr. Bahena postoperatively course was complicated by hospital-acquired pneumonia she was subsequently transferred over to TCU in [place] for rehabilitation. After transfer to the [facility], patient seen by Cardio, ID and pulmonary. Patient continues with PT, improved physical activities and exercise tolerance but still not back to her 100%. Patient was found to have c.diff and started on vanco PO. Patient is stable and requesting discharge today. Patient is cleared by cardio, pulmonary and ID. Patient understands and agrees with plan. RX: Acetaminophen [Tylenol 325mg tab] 650 mg PO Q6 PRN #30 tab Apixaban [Eliquis] 5 mg PO Q12 30 Days tab Aspirin [Ecotrin] 81 mg PO DAILY #30 tabec Atorvastatin [Lipitor] 10 mg PO HS #30 tab Lactobacillus Acidophilus [Bacid Acidophilus] 1 cap PO BID 10 Days cap Levalbuterol [Xopenex] 0.63 mg INH RQ6 PRN #1 neb Levothyroxine [Synthroid] 225 mcg PO DAILY@0630 30 Days tab Losartan [Cozaar] 25 mg PO DAILY 30 Days tab Metoprolol Tartrate [Lopressor] 50 mg PO BID 30 Days tab Pantoprazole [Protonix EC Tab] 40 mg PO DAILY 30 Days ect Vancomycin [Vancocin (Oral/Rectal USE)] 250 mg PO QID 7 Days soln Discharge Exam - Head Exam Head Exam: NORMAL INSPECTION - Eye Exam Eye Exam: EOMI, Normal appearance, PERRL Pupil Exam: NORMAL ACCOMODATION - ENT Exam ENT Exam: Mucous Membranes Moist - Respiratory Exam Respiratory Exam: Decreased Breath Sounds, Clear to PA & Lateral, NORMAL BREATHING PATTERN. absent: Wheezes, Respiratory Distress - Cardiovascular Exam Cardiovascular Exam: REGULAR RHYTHM, +S1, +S2 Additional comments: s/p MV replacement, surgical scar examined, nontender, no erythema or discharge noted - GI/Abdominal Exam GI & Abdominal Exam: Normal Bowel Sounds, Soft. absent: Tenderness - Rectal Exam Rectal Exam: Deferred - Extremities Exam Additional comments: Improved b/l LEs swelling and edema - Back Exam Back exam: absent: CVA tenderness (L), CVA tenderness (R) - Neurological Exam Neurological exam: Alert, CN II-XII Intact, Oriented x3 - Psychiatric Exam Psychiatric exam: Normal Affect - Skin Skin Exam: Normal Color Discharge Plan - Discharge Medications Prescriptions: Acetaminophen [Tylenol 325mg tab] 650 mg PO Q6 PRN #30 tab PRN Reason: Pain, Mild (1-3) Apixaban [Eliquis] 5 mg PO Q12 30 Days tab Aspirin [Ecotrin] 81 mg PO DAILY #30 tabec Atorvastatin [Lipitor] 10 mg PO HS #30 tab Lactobacillus Acidophilus [Bacid Acidophilus] 1 cap PO BID 10 Days cap Levalbuterol [Xopenex] 0.63 mg INH RQ6 PRN #1 neb PRN Reason: Shortness Of Breath Levothyroxine [Synthroid] 225 mcg PO DAILY@0630 30 Days tab Losartan [Cozaar] 25 mg PO DAILY 30 Days tab Metoprolol Tartrate [Lopressor] 50 mg PO BID 30 Days tab Pantoprazole [Protonix EC Tab] 40 mg PO DAILY 30 Days ect Vancomycin [Vancocin (Oral/Rectal USE)] 250 mg PO QID 7 Days soln - Follow Up Plan Condition: GOOD Disposition: HOME/ ROUTINE Instructions: Hospital-Acquired Pneumonia, Atrial Fibrillation (DC), Clostridium difficile, Prosthetic Heart Valve (DC), Breathing Exercises Additional Instructions: C/w medications as Rx/discussed Follow up with PMD/specialists in 1 week Referrals: Roberto Mirza MD [Staff Provider] - Zaki Villalobos MD [Staff Provider] - Dimitri Gracia MD [Staff Provider] -
[2018-08-10 08:03] VITALS: PULSE 75; RESP 18; TEMP 97.6; O2SAT 98
[2018-08-10] MEDS: Vancomycin 500 mg (Oral/Rectal USE) PO SCH (08:52)
[2018-08-10] MEDS: Potassium Chloride 10 mEq ER Tab PO SCH (08:52)
[2018-08-10] MEDS: Pantoprazole 40 mg EC Tab PO SCH (08:53)
[2018-08-10] MEDS: NEOSPORIN OU SCH (08:53)
[2018-08-10 08:54] VITALS: BP 125/85
[2018-08-10] MEDS: Lactobacillus Acidophilus 500 MU Cap PO SCH (08:54)
== END 2018-08-10 12:04 | disposition home or self-care (01) | DRG 949 ==
LOC: INTOOBSV 17:54 → H.TCU 17:54 → OBSVTOIN 17:54
PROVIDERS: ADMIT Internal Medicine; ATTEND Internal Medicine
PROC: F07M6FZ Therapeutic Exercise Treatment of Musculoskeletal System - Whole Body using Assistive, Adaptive, Supportive or Protective Equipment (ICD-10-PCS; principal; 2018-07-23)
PROC: F08Z4FZ Home Management Treatment using Assistive, Adaptive, Supportive or Protective Equipment (ICD-10-PCS; 2018-07-23)
PROC: 3E03329 Introduction of Other Anti-infective into Peripheral Vein, Percutaneous Approach (ICD-10-PCS; 2018-07-23)
DX: Z48.812 Encounter for surgical aftercare following surgery on the circulatory system (principal); J18.9 Pneumonia, unspecified organism; J44.0 Chronic obstructive pulmonary disease with (acute) lower respiratory infection; Z68.42 Body mass index [BMI] 45.0-49.9, adult; A04.72 Enterocolitis due to Clostridium difficile, not specified as recurrent; Z95.2 Presence of prosthetic heart valve; I48.2 Chronic atrial fibrillation; R09.02 Hypoxemia; Y95 Nosocomial condition; Z79.01 Long term (current) use of anticoagulants; Z79.82 Long term (current) use of aspirin; Z79.899 Other long term (current) drug therapy; Z80.0 Family history of malignant neoplasm of digestive organs; Z87.01 Personal history of pneumonia (recurrent); Z87.891 Personal history of nicotine dependence; G89.29 Other chronic pain; M19.90 Unspecified osteoarthritis, unspecified site; R91.1 Solitary pulmonary nodule; M54.9 Dorsalgia, unspecified; E03.9 Hypothyroidism, unspecified; E66.01 Morbid (severe) obesity due to excess calories; I10 Essential (primary) hypertension; I34.0 Nonrheumatic mitral (valve) insufficiency

== ENCOUNTER 2018-08-02 09:33 | Day surgery (SDC) | payer BC ==
[2018-08-02 09:53] VITALS: BMI 49.2
--- NOTE | 2018-08-02 12:06 | CP.SDSHP ---
Same Day Surgery H & P - History Proposed Procedure: PICC pLACEMENT Pre-Op Diagnosis: Poor venous access - Allergies Allergies: Allergies naproxen Allergy (Verified 07/23/18 17:48) RASH - Physical Exam Vital Signs: Vital Signs 08/02/18 09:54 Temperature 98.2 F Pulse Rate 78 Respiratory 16 Rate Blood Pressure 96/51 L O2 Sat by Pulse 98 Oximetry - Impression Impression: Plan PICC placement. Pt. Evaluated Today:Candidate for Anesthesia & Procedure: No Short Stay Discharge - Short Stay Discharge Admitting Diagnosis/Reason for Visit: PNEUMONIA Disposition: HOME/ ROUTINE
--- NOTE | 2018-08-02 12:06 | PCM.SURG1 ---
Surgeon's Initial Post Op Note - Surgeon's Notes Surgeon: Leann MUNGUIA [employer] Order Picker: [email or web address] Type of Anesthesia: Local Pre-Operative Diagnosis: Poor venous access Operative Findings: Patent right basilic vein Post-Operative Diagnosis: Poor venous access Operation Performed: picc placement Specimen/Specimens Removed: nONE Estimated Blood Loss: EBL {In ML}: 2 Blood Products Given: N/A Drains Used: No Drains Post-Op Condition: Fair Date of Surgery/Procedure: 08/02/18 Time of Surgery/Procedure: 12:00
[2018-08-02 12:11] VITALS: RESP 19
--- NOTE | 2018-08-02 12:14 | VASCULAR ---
PROCEDURE: Date of procedure: 08/02/2018 Procedure: 1. Placement of a right arm PICC with ultrasound and fluoroscopic guidance, CPT 77794 2. PICC tip confirmation with spot radiograph and is in the superior vena cava Medications: 1 percent lidocaine Total Fluoro time: 5.3 Seconds Radiation: 1.41 MGy EBL: 2 cc HISTORY: Infection requiring long-term IV antibiotics TECHNIQUE: Following informed consent and procedure time-out, the patient was placed supine on the interventional table and the right arm prepped and draped in the usual sterile fashion. Ultrasound showed a patent and compressible right basilic vein. After the skin was anesthetized with lidocaine, the basilic vein was accessed with micro micropuncture technique using ultrasound guidance. A guidewire was then advanced under fluoroscopic guidance into the superior vena cava. An image documenting ultrasound guidance for vascular access was permanently saved. The length of the single-lumen 4 [place] PICC was trimmed to 43 centimeters and advanced through a peel-away sheath. The PICC was position with tip of PICC confirm a spot radiograph the superior vena cava. The PICC was secured to the patient's skin. The PICC was flushed. A bio patch and sterile dressing was applied. IMPRESSION: Placement of a single-lumen 4 [place] PICC trimmed to 43 centimeters via right basilic vein. The tip of the PICC is confirmed with spot radiograph and is in the superior vena cava.
[2018-08-02 12:29] VITALS: BP 120/63; PULSE 92; TEMP 98.2; O2SAT 100
== END 2018-08-02 12:35 | disposition still patient (30) ==
LOC: H.OPSURG 09:33
PROVIDERS: ATTEND Internal Medicine Pulmonary Disease
DX: Z45.2 Encounter for adjustment and management of vascular access device (principal)
CPT/HCPCS: 36573; A4310; C1751